=== PATIENT | female | born 1950 | race Caucasian/White ===

== ENCOUNTER 2021-04-02 04:53 | Inpatient (IN) | payer BC ==
[~2021-04-02] VITALS: Ht 162.6 cm; Wt 81.5 kg
--- NOTE | ~2021-04-02 | PROC ---
[facility] [address] [place] [address] PROCEDURE REPORT Name: MARC MASSEY Room: [address] IN M.R.#: [id number] Admission: 04/02/21 Attend Phys: Andi Engle Discharge: Date of : 48 Report #: [id number] THIS REPORT FOR: cc: Ximena Wills Dorothy L. RNP [facility],Medical Records Staff ~ For Gi report, please see the Provation report in Perceptive 7 content. By: 0644Medical Records Staff JILLIAN /MARGY
[2021-04-02 05:00] VITALS: BP 112/54
[2021-04-02 06:19] LABS: ABSOLUTE LYMPHOCYTES 0.7 thou/uL (0.8-5.3); ABSOLUTE MONOCYTES 0.1 thou/uL (0.0-1.2); ABSOLUTE NEUTROPHILS 4.8 thou/uL (1.6-8.1); BASOPHILS 0.2 %; HEMATOCRIT 40.2 % (37.0-47.0); HEMOGLOBIN 13.7 gm/dL (12.0-15.0); LYMPHOCYTES 12.5 %; MCH 31.7 pg (26.0-34.0); MCHC 34.1 g/dL (28.0-37.0); MCV 92.9 fL (80.0-100.0); MONOCYTES 2.4 %; NUCLEATED RBCS 0 /100WBC; PLATELET COUNT* 113 thou/uL (150-400); POLYS 84.9 %; RBC 4.32 mil/uL (4.20-5.00); RDW-CV 12.4 % (10.5-14.5); WBC 5.7 thou/uL (4.0-11.0)
[2021-04-02 06:22] LABS: CALCIUM 8.1 mg/dL (8.5-10.1); CREATININE 1.1 mg/dL (0.6-1.3); POTASSIUM 3.7 mmol/L (3.5-5.1)
[2021-04-02 06:32] LABS: ALBUMIN 2.7 g/dL (3.4-5.0); MAGNESIUM 1.8 mg/dL (1.8-2.4); TOTAL BILIRUBIN 0.3 mg/dL (<0.1-1.0); TOTAL PROTEIN 6.3 g/dL (6.4-8.2)
[2021-04-02 07:03] LABS: PCO2 35.9 mmHg (35.0-45.0); PO2 66.7 mmHg (75.0-100.0); pH 7.453 (7.340-7.450)
--- NOTE | 2021-04-02 09:49 | EKG ---
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[place] : 1950 Requested By: Jayashree Ramirez Order Number: [id number] MD: Mauricio Bai Measurements Intervals [place] Rate: 84 P: 17 PA: 175 QRS: -7 QRSD: 115 T: -4 QT: 364 QTc: 431 Interpretive Statements Sinus rhythm Ventricular premature complex Nonspecific intraventricular conduction delay Borderline low voltage, extremity leads No previous ECG available for comparison Electronically Signed On 04-02-2021 9:49:47 CDT by Mauricio Bai [email or web address] <ELECTRONICALLY SIGNED> By: Mauricio Bai MD, [facility] 04/02/21 0949 0507 0507 Mauricio Bai MD, [facility] /EPI
[2021-04-02 10:34] VITALS: BP 113/55
[2021-04-02 14:30] VITALS: BP 103/54
[2021-04-02] MEDS ORDERED: IVERMECTIN3 MG PO (14:50)
[2021-04-02] MEDS ORDERED: PROAIR HFA8.5 GM INH (14:51)
[2021-04-02] MEDS ORDERED: ZPAK PO (14:51)
[2021-04-02] MEDS ORDERED: BUDESONIDE EC3 MG PO (14:52)
--- NOTE | 2021-04-02 14:52 | NUR ---
MED LIST UPDATED BY PATIENT'S DAUGHTER, JAYMIE UP. JAYMIE REPORTS SHE DOES NOT KNOW THE CURRENT DOSE OF IVERMECTIN THAT THE PATIENT IS ON BUT SHE WILL FIND OUT WHAT IT IS AND CALL BACK WITH THAT INFORMATION. JAYMIE'S PHONE NUMBER IS [phone].
--- NOTE | 2021-04-02 18:15 | NUR ---
PT'S DAUGHTER BROUGHT PT'S IVERMECTIN PRESCRIPTION, PT STARTED TAKING IVERMECTIN 3MG YESTERDAY WITH ORDERS TO TAKE 10 TABS ON DAY 1 AND 3, REPEAT IN 1 WEEK. PT'S DAUGHTER WOULD LIKE FOR HER TO STAY ON IVERMECTIN REGIMEN.
[2021-04-02 18:48] VITALS: BP 116/66
[2021-04-02 22:00] VITALS: BP 136/68
[2021-04-03] VITALS (7 sets, daily range): BP systolic 108–130; BP diastolic 48–79
[2021-04-03 02:12] LABS: ABSOLUTE LYMPHOCYTES 0.8 thou/uL (0.8-5.3); ABSOLUTE MONOCYTES 0.1 thou/uL (0.0-1.2); ABSOLUTE NEUTROPHILS 4.8 thou/uL (1.6-8.1); BASOPHILS 0.1 %; HEMATOCRIT 39.4 % (37.0-47.0); HEMOGLOBIN 13.2 gm/dL (12.0-15.0); LYMPHOCYTES 13.1 %; MCH 31.2 pg (26.0-34.0); MCHC 33.6 g/dL (28.0-37.0); MONOCYTES 2.5 %; MPV 9.2 fl. (7.2-11.1); NUCLEATED RBCS 0 /100WBC; PLATELET COUNT* 110 thou/uL (150-400); POLYS 84.3 %; RBC 4.23 mil/uL (4.20-5.00); RDW-CV 12.5 % (10.5-14.5); WBC 5.7 thou/uL (4.0-11.0)
[2021-04-03 02:40] LABS: ALBUMIN 2.3 g/dL (3.4-5.0); CREATININE 0.7 mg/dL (0.6-1.3); TOTAL BILIRUBIN 0.3 mg/dL (<0.1-1.0); TOTAL PROTEIN 5.9 g/dL (6.4-8.2)
[2021-04-03 06:10] LABS: PCO2 37.5 mmHg (35.0-45.0); PO2 68.1 mmHg (75.0-100.0); pH 7.395 (7.340-7.450)
--- NOTE | 2021-04-03 15:16 | CON ---
[address] [address] CONSULTATION Name: BRYSONMARC D Room: [address] IN M.R.#: [id number] Admission: 04/02/21 Attend Phys: Andi Engle Discharge: Date of : 48 Report #: [id number] THIS REPORT FOR: cc: Ximena Wills Dorothy L. RNP Pervez, Adeel MD ~ DATE OF CONSULTATION: 04/02/2021 REQUESTING PHYSICIAN: Anthony Whitfield MD INDICATION FOR CONSULTATION: Acute hypoxemic respiratory failure secondary to COVID-19. HISTORY OF PRESENT ILLNESS: A 70-year-old female. She has no past medical history. She is unvaccinated for COVID-19. The patient over last several days has been having high-grade fever recorded up to 38.9 degrees Celsius. She also was evaluated previously as an outpatient and found to have an O2 saturation in the 80s and therefore, she came to this Emergency Room. She earlier by her primary care physician was administered Regeneron COVID-19 antibodies. The patient's condition is still continuing to deteriorate. She also was ordered a Z-Willi; however, she took only one dose. She has a cough. There is not much sputum. There is no chest pain. She does not have upper respiratory complaints at this time. There is no swelling of lower extremities. There is no calf pain. REVIEW OF SYSTEMS: Review of systems for 12 points is negative. PAST MEDICAL HISTORY: No past medical history. SOCIAL HISTORY: Lifetime nonsmoker. No known history of heavy alcohol use or illegal drug use. ALLERGIES: No known drug allergies. CURRENT MEDICATIONS: List in [facility] reviewed. HOME MEDICATIONS: Recently received Regeneron COVID-19 antibodies and was just started on Z-Willi. FAMILY HISTORY: There is no pertinent family history. PHYSICAL EXAMINATION: GENERAL: She is alert, awake and oriented. She, however, is very hypoxemic. She is requiring 100% FiO2 with 55 liters of flow on heated high-flow nasal cannula to maintain O2 saturation in the low [address] [address] CONSULTATION Name: MARC MASSEY Room: [address]#: [id number] Admission: 04/02/21 Attend Phys: Andi Engle Discharge: Date of : 48 Report #: [id number] VITAL SIGNS: The pulse of 67, blood pressure is 116/66. She was tachypneic with respiratory rate of 28, high-grade fever earlier today at 38.9 and 37.3 at the time of my evaluation. HEENT: Head is normocephalic and atraumatic. NECK: Does not show raised JVP. CHEST: Breath sounds are bilaterally equal. No added sounds. HEART: Regular. There is no murmur. ABDOMEN: Soft and nontender. EXTREMITIES: Lower extremities, no edema, no calf tenderness. SKIN: Dry and intact. NEUROLOGIC: Moves all extremities bilaterally equally and spontaneously with no focal deficit identified. LABORATORY DATA: The patient's chest x-ray and CTA chest films and report are reviewed. I reviewed both the films as well. Lab work also in [facility] reviewed. ASSESSMENT AND PLAN: 1. Acute hypoxemic respiratory failure secondary to COVID-19. Diagnostically, avoiding sleeping supine, prone is preferable to bed to chair if possible. If she fails to improve, we will have a low threshold of adding a BiPAP while asleep. Also, agree with nebulized bronchodilators as already ordered by the primary service. 2. COVID-19 with ARDS. The patient already has received Regeneron COVID-19 antibodies, which should be helpful. Considering this, the primary issue at this time appears to be cytokine storm as she is also significantly hypoxemic. I am starting with a higher dose of dexamethasone at 10 mg IV b.i.d. We will cut back if her respiratory status improves. Also, agree with treating her with remdesivir. I recommend giving her Actemra; however, Actemra currently is not available. As she has already received Regeneron COVID-19 antibodies, I will not give her convalescent plasma. 3. Pulmonary infiltrates, primarily these appear to be secondary to ARDS from COVID-19. However, considering that she is very hypoxemic, I initially started with fairly broad-spectrum antibiotics, doxycycline and cefepime. More cultures and serologies are ordered. 4. DVT prophylaxis, intermediate dose Lovenox. 5. Gastrointestinal prophylaxis, Protonix. 6. Clostridium difficile prophylaxis, Lactinex. Thanks for this consultation. <ELECTRONICALLY SIGNED> By: Noel Hernandez MD 04/03/21 1516 2100 [id number] Hernandez MD /nt
--- NOTE | 2021-04-03 15:26 | NUR ---
CM COMPLETED THE INITIAL ASSESSMENT WITH PT AND HIS , WHO WAS AT BEDSIDE. PT LIVES AT HOME WITH . PT HAS 4 STAIRS INSIDE FROM GARAGE AND 14 STAIRS INSIDE OF HOEM. PT HAS CANE, WALKER, AND CPAP. PT IS VERY ACTIVE, "CLIMBS LADDERS...CANT SIT AROUND AND WATCH TV." PT USED HH AFTER HIP SX IN 2002, 2008 AND KNEE SX IN 2010, PT DOESNT RECALL HH AGENCY. CM TO CONT TO FOLLOW.
--- NOTE | 2021-04-03 16:19 | NUR ---
CM COMPLETED INITIAL ASSESSMENT WITH PT DTR, JAYMIE, D/T COVID ISOLATION PRECAUTIONS. PT LIVES IN HOME WITH SPOUSE. PT IS ACTIVE, INDEPENDENT WITH ADLS AND DRIVES A VEHICLE. PT HOME IS ON ONE LEVEL. STAIRS TO BASEMENT. PT HAS NO DMES. JAYMIE STATED PT HAS NO HX WITH HH OR SNF.
--- NOTE | 2021-04-03 18:21 | NUR ---
PATIENT ARRIVED FROM ER THIS AM. PATIENT SETTLED TO ROOM, HISTORY, ASSESSMENT AND VITYALS COMPLETED AND DOCUMENTED. PATIENT IS RESTING IN BED. PATIENT IS UP WITH STANDBY ASSIST TO COMMODE. PATIENT CAME FROM ER ON BIPAP, O2 SATS IN LOW 90'S. PATIENT SWITCHED TO [facility] FOR LUNCH/DINNER, PATIENT STARTED TO SAT IN UPPER 80'S. BIPAP IS CURRENTLY ON. PATIENT HAS POOR APPETITE, DIET IS CLEAR LIQUIDS, CLEAR ENSURE GIVEN. PATIENT DENIES ANY NEEDS AT THIS TIME. CALL LIGHT WITHIN REACH.
[2021-04-04 00:06] VITALS: BP 108/64
[2021-04-04 04:00] VITALS: BP 90/61
[2021-04-04 07:55] VITALS: BP 98/69
[2021-04-04 09:32] LABS: HEMATOCRIT 39.9 % (37.0-47.0); HEMOGLOBIN 13.8 gm/dL (12.0-15.0); MCH 32.1 pg (26.0-34.0); MCHC 34.7 g/dL (28.0-37.0); MCV 92.4 fL (80.0-100.0); NUCLEATED RBCS 0 /100WBC; PLATELET COUNT* 160 thou/uL (150-400); RBC 4.31 mil/uL (4.20-5.00); RDW-CV 12.6 % (10.5-14.5); WBC 9.4 thou/uL (4.0-11.0)
[2021-04-04 09:43] LABS: ALBUMIN 2.5 g/dL (3.4-5.0); CALCIUM 8.2 mg/dL (8.5-10.1); CREATININE 0.9 mg/dL (0.6-1.3); MAGNESIUM 2.2 mg/dL (1.8-2.4); POTASSIUM 3.9 mmol/L (3.5-5.1); TOTAL BILIRUBIN 0.4 mg/dL (<0.1-1.0)
[2021-04-04 10:23] LABS: ABSOLUTE LYMPHOCYTES 0.5 thou/uL (0.8-5.3); ABSOLUTE MONOCYTES 0.2 thou/uL (0.0-1.2); ABSOLUTE NEUTROPHILS 8.7 thou/uL (1.6-8.1); PLATELET ESTIMATE ADEQUATE
[2021-04-04 12:18] VITALS: BP 94/58
[2021-04-04 16:00] VITALS: BP 83/44
--- NOTE | 2021-04-04 16:23 | NUR ---
Cm spoke with Pt's dtr, per dtr, Pt does have a DPOA at home, dtr to go to parent's home and text CM a copy of the DPOA. Pt on bipap 100%. Updated House Sup that Pt may need to complete one if family unable to locate
--- NOTE | 2021-04-04 18:24 | NUR ---
PATIENT RESTING IN BED. PATIENT ENCOURAGED TO LIE ON SIDE OR STOMACH. PATIENT HAD BEEN ON HEATED HIGH FLOW THROUGHOUT DAY, CURRENTLY ON BIPAP DUE TO O2 SATS CONSISTANTLY FALLING INTO 80'S. DR RANGEL AWARE. PATIENT IS UP STANDBY TO BSC. PATIENT ADVANCED TO REGULAR DIET AND TOLERATING WELL. PATIENT HAD COMPLAINTS OF SORE THROAT THIS AM, TYLENOL GIVEN. PATIENT DENIES ANY NEEDS AT THIS TIME. CALL LIGHT WITHIN REACH.
[2021-04-04 19:45] VITALS: BP 97/65
[2021-04-05] VITALS (7 sets, daily range): BP systolic 96–116; BP diastolic 52–74
[2021-04-05 04:31] LABS: ABSOLUTE LYMPHOCYTES 0.8 thou/uL (0.8-5.3); ABSOLUTE MONOCYTES 0.6 thou/uL (0.0-1.2); ABSOLUTE NEUTROPHILS 7.4 thou/uL (1.6-8.1); BASOPHILS 0.2 %; HEMATOCRIT 40.1 % (37.0-47.0); HEMOGLOBIN 13.7 gm/dL (12.0-15.0); LYMPHOCYTES 9.5 %; MCH 31.3 pg (26.0-34.0); MCV 92.1 fL (80.0-100.0); MONOCYTES 6.8 %; MPV 8.9 fl. (7.2-11.1); NUCLEATED RBCS 0 /100WBC; PLATELET COUNT* 165 thou/uL (150-400); POLYS 83.5 %; RBC 4.36 mil/uL (4.20-5.00); RDW-CV 12.6 % (10.5-14.5); WBC 8.8 thou/uL (4.0-11.0)
--- NOTE | 2021-04-05 04:35 | NUR ---
PT A&O X 4. SAT 90-98% ON BIPAP. MEDS GIVEN ORDERED. NO C/O DIARRHEA. UP TO BSC WITH SBA. DENIED PAIN. PT SLEPT ON AND OFF. CALL LIGHT WITHIN REACH. WILL CONTINUE TO MONITOR.
[2021-04-05 05:04] LABS: ALBUMIN 2.3 g/dL (3.4-5.0); CREATININE 0.8 mg/dL (0.6-1.3); MAGNESIUM 2.4 mg/dL (1.8-2.4); TOTAL BILIRUBIN 0.4 mg/dL (<0.1-1.0); TOTAL PROTEIN 5.6 g/dL (6.4-8.2)
--- NOTE | 2021-04-05 08:57 | NUR ---
Pt was placed on AVAPS VT 440/R12/FIO 90% PT DIDN'T TOLERATE. PT DESATED INTO THE LOW 80%. PLACED PT BACK ON ST 1610 90%. PT NOW IS BACK IN THE 93%
--- NOTE | 2021-04-05 18:55 | NUR ---
PATIENT HAS REMAINED A&OX4, PLEASANT AND COOPERATIVE WITH CARES THIS SHIFT. PATIENT OFF BIPAP FOR MEALS HOWEVER DOES DESAT AT THAT TIME WITH [facility] ON. MEDICATIONS ADMINISTERED ORDERED. NEW IV PLACED IN RIGHT AC BY ER NURSE. SPOKE WITH PATIENT'S DAUGHTER X2 THIS SHIFT TO GIVE UPDATES. CALL LIGHT AND FREQUENTLY USED ITEMS WITHIN REACH.
[2021-04-06] VITALS (7 sets, daily range): BP systolic 82–119; BP diastolic 49–76
[2021-04-06 05:50] LABS: HEMATOCRIT 40.5 % (37.0-47.0); HEMOGLOBIN 13.6 gm/dL (12.0-15.0); MCH 31.2 pg (26.0-34.0); MCHC 33.6 g/dL (28.0-37.0); MPV 9.2 fl. (7.2-11.1); RBC 4.36 mil/uL (4.20-5.00); RDW-CV 12.4 % (10.5-14.5)
--- NOTE | 2021-04-06 05:50 | NUR ---
Alert and oriented x 4. Vitals are stable. She does need to be on the bipap her oxygen does drop into the 80's when she takes it off. She is up with stand by assist to the bedside commode. Daughter Odette called last evening for an update. Monitor hasn't alarmed. She has slept well.
[2021-04-06 06:08] LABS: ALBUMIN 2.4 g/dL (3.4-5.0); CALCIUM 7.9 mg/dL (8.5-10.1); CREATININE 0.8 mg/dL (0.6-1.3); MAGNESIUM 2.5 mg/dL (1.8-2.4); POTASSIUM 4.3 mmol/L (3.5-5.1); TOTAL BILIRUBIN 0.6 mg/dL (<0.1-1.0); TOTAL PROTEIN 5.6 g/dL (6.4-8.2)
[2021-04-06 11:35] LABS: BE 0.8 mmol/L (-2 to +3); PCO2 42.7 mmHg (35.0-45.0); PO2 69.8 mmHg (75.0-100.0); pH 7.399 (7.340-7.450)
--- NOTE | 2021-04-06 11:35 | CON ---
[address] [address] CONSULTATION Name: BRYSONMARC Andi Room: [address] IN .R.#: [id number] Admission: 04/02/21 Attend Phys: Andi Engle Discharge: Date of : 48 Report #: [id number] THIS REPORT FOR: cc: Ximena Wills Dorothy L. RNP Liston, Michael J. MD [facility] ~ DATE OF CONSULTATION: 04/05/2021 CARDIOLOGY CONSULTATION INDICATION: Atrial fibrillation with rapid ventricular response rate. HISTORY OF PRESENT ILLNESS: The patient is a 70-year-old white female who was admitted to the hospital with COVID-19 pneumonia. In this setting, she developed atrial fibrillation with a rapid ventricular response rate. She denies any prior cardiac history. The patient has been in the hospital almost a week now. The patient has received remdesivir, Actemra, dexamethasone, bronchodilator therapy and proning in an effort to treat her COVID-19 pneumonia. PAST MEDICAL HISTORY: None. HOME MEDICATIONS: Ivermectin 3 mg daily, Z-LAKE 1 pack, albuterol inhaler 2 puffs every 4-6 hours p.r.n., budesonide 3 mg p.o. p.r.n. ALLERGIES: None documented. FAMILY HISTORY: Noncontributory. SOCIAL HISTORY: The patient is . She does not smoke. She does not drink alcohol. PHYSICAL EXAMINATION: VITAL SIGNS: Blood pressure 111/66, pulse is in the one-teens and irregular. GENERAL: This is a pleasant lady who does not appear to be in distress. High flow nasal cannula in place. HEENT: Extraocular muscles intact. Mucous membranes are moist. NECK: Shows no jugular venous distention. CHEST: Reveals diminished breath sounds throughout. CARDIAC: Reveals an irregularly irregular rhythm that is slightly tachycardic. I do not appreciate obvious gallop or murmur. ABDOMEN: Soft and nontender. Bowel sounds present. EXTREMITIES: Shows no edema. LABORATORY DATA: Reviewed. Sodium 144, potassium 4.0, chloride 110, bicarbonate 29, BUN 21, creatinine 0.8, serum glucose 138. [place] [address] CONSULTATION Name: MARC MASSEY Room: [address] IN [facility]#: [id number] Admission: 04/02/21 Attend Phys: Andi Engle Discharge: Date of : 48 Report #: [id number] limits. High sensitivity troponin 18. White blood cell count 8.8, hemoglobin 13.7, platelet count 165,000. Chest x-ray: Poor quality improving diffuse infiltrates. IMPRESSION AND RECOMMENDATIONS: 1. New onset atrial fibrillation with rapid ventricular response rate. We will give flecainide in an attempt to cardiovert to sinus rhythm. Echocardiogram will be ordered. Rates fairly well controlled presently. We will start low dose Lopressor along with flecainide. 2. COVID-19 pneumonia per hospitalist and pulmonology. <ELECTRONICALLY SIGNED> By: Víctor Daley MD, FACC 04/06/21 1135 1231 1942Michaeluisito Daley MD, FACC /nt
[2021-04-07] VITALS (7 sets, daily range): BP systolic 103–125; BP diastolic 65–80
[2021-04-07 04:25] LABS: HEMATOCRIT 38.4 % (37.0-47.0); MCHC 33.8 g/dL (28.0-37.0); MCV 91.8 fL (80.0-100.0); MPV 8.7 fl. (7.2-11.1); RBC 4.18 mil/uL (4.20-5.00); WBC 8.1 thou/uL (4.0-11.0)
[2021-04-07 05:17] LABS: ALBUMIN 2.7 g/dL (3.4-5.0); CREATININE 0.7 mg/dL (0.6-1.3); MAGNESIUM 2.3 mg/dL (1.8-2.4); POTASSIUM 3.9 mmol/L (3.5-5.1); TOTAL BILIRUBIN 0.6 mg/dL (<0.1-1.0); TOTAL PROTEIN 5.5 g/dL (6.4-8.2)
--- NOTE | 2021-04-07 06:43 | NUR ---
She has been drowsy this shift. She is on bipap F1O2 70%. She is afib on the monitor. She does desat immediately if she is off the bipap. She did appear to be resting comfortable after xanax. sat has been in the 90's. I did speak with daughter Odette last evening and I told her that the patient was resting and vitals were stable but that she requires the bipap at all times right now. Daughter said that she would like to talk to Dr Finch when she makes rounds today or whoever might be rounding for Dr Finch. Edgardo Pino stated that she would like them to increase the jenn C dose and restart her ivermectin. I did send a non-urgent message through You Call MD. She does struggle when up to the bedside commode,she does require assist. Will continue to monitor.
[2021-04-07 09:53] LABS: BE 5.3 mmol/L (-2 to +3); pH 7.496 (7.340-7.450)
--- NOTE | 2021-04-07 13:12 | NUR ---
The patient is alert. Afib on the monitor. She has been on the Bipap throughtout the day. Denies SOB or CP. Call light within reach.
[2021-04-08] VITALS (27 sets, daily range): BP systolic 97–131; BP diastolic 60–89
--- NOTE | 2021-04-08 | NUR ---
Patient was confused and sat kept dropping onthe bipap. She was unable to tolerate having the bipap off for any amount of time. RT was in the room and made some changes to her bipap. She coughed up some brown colored stringy like phelm. I did give her some IV nausea med and IV decadron and started her IV jenn C infusion. She continued to desat and it was observed that there was no way she could tolerate anything orally. She was very restless, her face was chary and from struggling and the bipap mask irritating her skin. She ended up pulling out her IV after I had just talked with Dr Finch and recieved orders for IV medications. We cleaned her up and changed her linen. Batista inserted to DD with no difficulty. Report given to Jessie HAMMER and she took over care at 2300. I did speak with daughter Odette and explained that she is having more difficulty with oxygenation and that a new IV medication was started. Odette expressed understanding.
--- NOTE | 2021-04-08 05:03 | NUR ---
PT WAS STARTED ON A PRECEDEX GTT AT 0000. THIS RN RESUMED CARE OF THIS PT AT THAT TIME. PT WAS RESTLESS, ANXIOUS AND ATTEMPTING TO TAKE BIPAP MASK OFF. PRECEDEX WAS INITIATED AT 0.2 MCG/KG/HR AND WAS TITRATED TO KEEP PT SLIGHTLY SEDATED. MAX DOSE GIVEN WAS 1.0 MCG/KG/HR WHICH DID LIGHTLY SEDATE PT. PT DID RESPOND TO PAINFUL STIMULI (NAIL BEDS PINCHED). BP SUPPORTED THE DOSES OF TITRATED PRECEDEX (92-128/60-80), AFEBRILE. AFIB PER MONITOR. SATS 95-100% ON BIPAP WITH 90% FIO2. ROBERTS PATENT WITH DARK YELLOW, ADEQUATE OUTPUT. ONE LARGE BM THIS SHIFT. PT'S DAUGHTER CALLED FOR UPDATE OF PT'S STATUS. MOST QUESTIONS WERE ANSWERED AND PT SEEMED PLEASED WITH BEING EXPLAINED PT'S POC. PT AGREED TO GETTING SOME SLEEP AND TO STOP WORRYING. ASSURANCE WQAS GIVEN THAT IF THERE WERE ANY SIGNIFICANT CHANGES THAT SHE WOULD BE NOTIFIED BARB. TWO PERIPHERAL IV'S WERE STARTED ON THE RIGHT LOWER FORE ARM. CURRENTLY, POOR PROGRESS TOWARDS GOALS, WILL CONTINUE TO MONITOR.
[2021-04-08 11:39] LABS: BE 4.9 mmol/L (-2 to +3); PCO2 40.1 mmHg (35.0-45.0); PO2 78.5 mmHg (75.0-100.0); pH 7.475 (7.340-7.450)
[2021-04-08 13:03] LABS: ABSOLUTE LYMPHOCYTES 0.3 thou/uL (0.8-5.3); ABSOLUTE MONOCYTES 0.4 thou/uL (0.0-1.2); BASOPHILS 0.2 %; HEMATOCRIT 42.4 % (37.0-47.0); HEMOGLOBIN 14.5 gm/dL (12.0-15.0); LYMPHOCYTES 4.5 %; MCH 31.5 pg (26.0-34.0); MCHC 34.2 g/dL (28.0-37.0); MCV 92.1 fL (80.0-100.0); MONOCYTES 5.7 %; MPV 9.5 fl. (7.2-11.1); NUCLEATED RBCS 0 /100WBC; PLATELET COUNT* 134 thou/uL (150-400); POLYS 89.6 %; RDW-CV 12.3 % (10.5-14.5); WBC 7.8 thou/uL (4.0-11.0)
[2021-04-08 13:18] LABS: ALBUMIN 2.8 g/dL (3.4-5.0); CALCIUM 7.8 mg/dL (8.5-10.1); CREATININE 0.8 mg/dL (0.6-1.3); MAGNESIUM 2.4 mg/dL (1.8-2.4); POTASSIUM 4.1 mmol/L (3.5-5.1); TOTAL BILIRUBIN 0.7 mg/dL (<0.1-1.0); TOTAL PROTEIN 5.7 g/dL (6.4-8.2)
--- NOTE | 2021-04-08 13:50 | NUR ---
ICU status. Copy of DPOA on chart. On bipap 10L 90%fio2. On precedex. On day 22 since dx, can come out of iso
--- NOTE | 2021-04-08 17:41 | EKG ---
[place] [address] ELECTROCARDIOGRAM REPORT Name: MARC MASSEY Room: [address] IN .R.#: [id number] Admission: 04/02/21 Attend Phys: Anthony Whitfield Discharge: Date of : 48 Date of Service: 04/05/21 1017 Report #: [id number] THIS REPORT FOR: //name// 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 <ELECTRONICALLY SIGNED> By: Víctor Daley MD, [facility] 04/08/21 1741 1017 1017 Víctor Daley MD, [facility] /EPI
[2021-04-09] VITALS (35 sets, daily range): BP systolic 76–134; BP diastolic 46–94
[2021-04-09 03:35] LABS: HEMATOCRIT 42.5 % (37.0-47.0); HEMOGLOBIN 14.5 gm/dL (12.0-15.0); MCH 31.1 pg (26.0-34.0); MCHC 34.1 g/dL (28.0-37.0); MPV 9.4 fl. (7.2-11.1); NUCLEATED RBCS 0 /100WBC; PLATELET COUNT* 113 thou/uL (150-400); RBC 4.67 mil/uL (4.20-5.00); RDW-CV 12.2 % (10.5-14.5); WBC 7.7 thou/uL (4.0-11.0)
[2021-04-09 04:05] LABS: ALBUMIN 2.5 g/dL (3.4-5.0); CALCIUM 7.7 mg/dL (8.5-10.1); CREATININE 0.8 mg/dL (0.6-1.3); MAGNESIUM 2.3 mg/dL (1.8-2.4); POTASSIUM 4.1 mmol/L (3.5-5.1); TOTAL BILIRUBIN 0.5 mg/dL (<0.1-1.0); TOTAL PROTEIN 5.2 g/dL (6.4-8.2)
[2021-04-09 05:47] LABS: ABSOLUTE LYMPHOCYTES 0.2 thou/uL (0.8-5.3); ABSOLUTE MONOCYTES 0.3 thou/uL (0.0-1.2); ABSOLUTE NEUTROPHILS 7.2 thou/uL (1.6-8.1); ANISOCYTOSIS 1+; PLATELET ESTIMATE DECREASED; POIKILOCYTOSIS 1+
--- NOTE | 2021-04-09 11:38 | NUR ---
Nutrition: Pt admitted with COVID PNA. H/o afib. Seen for LOS. Spoke with RN. Pt is on 2gmNa diet. She ate some applesauce this morning, hopeful for good po intake throughout the day. She is drowsy right now. Bipap at HS. Heated hi-lucía. +BM yday. Wt: 189#. Meds: insulin, zinc, vit d, B1, l. acidophilus, metoprolol. Labs: BG 167, alb 2.5, prealb 19.6. Condiser low nutrition risk at this time. Will f/u per protocol.
--- NOTE | 2021-04-09 12:45 | NUR ---
Case and plan of care reviewed with MD each weekday during patient's length of stay. Continue plan of care per MD orders for current dx. 9/7 pm Transferred to ICU for IV Precedex need, Bibap 80 Fi02 CM will continue to follow for discharge planning needs.
--- NOTE | 2021-04-09 13:28 | 2DMMODE ---
[address] [address] 2 D/M-MODE ECHOCARDIOGRAM Name: MARC MASSEY Room: [address] IN [facility]#: [id number] Admission: 04/02/21 Attend Phys: Anthony Whitfield Discharge: Date of : 48 Date of Service: 04/09/21 1328 Report #: [id number] THIS REPORT FOR: cc: Ximena Wills Dorothy L. RNP Holkins, John M. MD [facility] ~ APPROVED REPORT Study performed: 04/09/2021 11:49:43 EXAM: Comprehensive 2D, Doppler, and color-flow Echocardiogram Patient Location: In-Patient Room #: 106 Status: routine BSA: 1.91 HR: 115 bpm BP: 89/64 mmHg Rhythm: Atrial Fibrillation Other Information Study Quality: Good Indications Atrial Fibrillation 2D Dimensions IVSd: 11.26 (7-11mm) LVOT Diam: 20.11 (18-24mm) LVDd: 41.60 mm PWd: 9.57 (7-11mm) Ascending Ao: 32.27 (22-36mm) LVDs: 27.63 (25-40mm) Aortic Root: 34.48 mm Volumes Left Atrial Volume (Systole) LA ESV Index: 27.70 mL/m2 Aortic Valve AoV Peak Eliel.: 1.12 m/s AO Peak Gr.: 5.06 mmHg LVOT Max P.47 mmHg AO Mean Gr.: 2.93 mmHg LVOT Mean P.51 mmHg LVOT Max V: 0.93 m/s AO V2 VTI: 19.65 cm LVOT Mean V: 0.56 m/s TOMMY (VTI): 2.46 cm2 LVOT V1 VTI: 15.24 [place] [address] 2 D/M-MODE ECHOCARDIOGRAM Name: MARC MASSEY Room: [address] IN [facility]#: [id number] Admission: 04/02/21 Attend Phys: Anthony Whitfield Discharge: Date of : 48 Date of Service: 04/09/21 1328 Report #: [id number] TDI Medial E' Eliel.: 0.10 m/s Pulmonary Valve PV Peak Eliel.: 0.76 m/s PV Peak Gr.: 2.33 mmHg Left Ventricle The left ventricle is normal size. There is normal LV segmental wall motion. There is normal left ventricular wall thickness. Left ventricular systolic function is normal. The left ventricular ejection fraction is within the normal range. LVEF is 65%. This study is not technically sufficient to allow evaluation of the LV diastolic function due to atrial fibrillation. Right Ventricle The right ventricle is normal size. The right ventricular systolic function is normal. Atria Left atrium is mildly dilated. The right atrium size is normal. Aortic Valve The aortic valve is normal in structure. No aortic regurgitation is present. There is no aortic valvular stenosis. Mitral Valve Mild mitral annular calcification. Mild mitral regurgitation. No evidence of mitral valve stenosis. Tricuspid Valve The tricuspid valve is normal in structure. Trace tricuspid regurgitation. Unable to assess PA pressure. Pulmonic Valve The pulmonary valve is normal in structure. Mild pulmonic regurgitation. Great Vessels The aortic root is normal in size. IVC is normal in size and collapses >50% with inspiration. Pericardium There is no pericardial effusion. <Conclusion> [place] [address] 2 D/M-MODE ECHOCARDIOGRAM Name: BRYSONMARC Andi Room: [address] IN .R.#: [id number] Admission: 04/02/21 Attend Phys: Anthony Whitfield Discharge: Date of : 48 Date of Service: 04/09/21 1328 Report #: [id number] The left ventricle is normal size. There is normal left ventricular wall thickness. Left ventricular systolic function is normal. The left ventricular ejection fraction is within the normal range. LVEF is 65%. This study is not technically sufficient to allow evaluation of the LV diastolic function due to atrial fibrillation. The right ventricle is normal size. Left atrium is mildly dilated. The right atrium size is normal. The aortic valve is normal in structure. Mild mitral annular calcification. Mild mitral regurgitation. The tricuspid valve is normal in structure. IVC is normal in size and collapses >50% with inspiration. There is no pericardial effusion. There is normal LV segmental wall motion. <ELECTRONICALLY SIGNED> By: Colten Michelle MD, [facility] 04/09/21 1328 1328 1328 Colten Michelle MD, FACC /INF
[2021-04-09 18:34] LABS: CALCIUM 8.4 mg/dL (8.5-10.1); MAGNESIUM 2.6 mg/dL (1.8-2.4); POTASSIUM 4.2 mmol/L (3.5-5.1)
--- NOTE | 2021-04-09 20:30 | NUR ---
PT VERY DROWSY THIS AM, JUST VERBALISING "HELP, HELP". TOLERATED HEATED HIGH FLOW NC, FIO2 100% FOR FOUR HOURS THIS AM. ABLE TO EAT SOME APPLE SAUCE AND HAVE PILLS CRUSED. PAST NOON PT STARTED TAKING OFF THE CANNULA AND STATED SHE JUST WANTED TO AND GET OUT OF HERE, DESATTING AT [facility]. PUT BACK ON BIPAP AND PRECEDEX INCREASED TO MAX TO KEEP HER CALM AND NOT PULL OFF MASK. FIO2 DECREASED TO 80%. DAUGHTER UPDATED.
[2021-04-10] VITALS (13 sets, daily range): BP systolic 77–131; BP diastolic 48–86
[2021-04-10 05:03] LABS: ABSOLUTE LYMPHOCYTES 0.6 thou/uL (0.8-5.3); ABSOLUTE MONOCYTES 0.7 thou/uL (0.0-1.2); ABSOLUTE NEUTROPHILS 8.9 thou/uL (1.6-8.1); BASOPHILS 0.2 %; HEMATOCRIT 42.1 % (37.0-47.0); HEMOGLOBIN 14.1 gm/dL (12.0-15.0); LYMPHOCYTES 6.1 %; MCH 31.1 pg (26.0-34.0); MCHC 33.6 g/dL (28.0-37.0); MCV 92.5 fL (80.0-100.0); MPV 9.3 fl. (7.2-11.1); NUCLEATED RBCS 0 /100WBC; PLATELET COUNT* 138 thou/uL (150-400); POLYS 86.7 %; RBC 4.55 mil/uL (4.20-5.00); RDW-CV 12.1 % (10.5-14.5); WBC 10.2 thou/uL (4.0-11.0)
[2021-04-10 05:33] LABS: ALBUMIN 3.1 g/dL (3.4-5.0); CALCIUM 8.2 mg/dL (8.5-10.1); CREATININE 0.9 mg/dL (0.6-1.3); MAGNESIUM 2.4 mg/dL (1.8-2.4); POTASSIUM 3.9 mmol/L (3.5-5.1); TOTAL BILIRUBIN 0.9 mg/dL (<0.1-1.0); TOTAL PROTEIN 5.5 g/dL (6.4-8.2)
[2021-04-10 14:22] LABS: PCO2 42.7 mmHg (35.0-45.0); PO2 76.8 mmHg (75.0-100.0)
[2021-04-10 17:08] LABS: CALCIUM 7.9 mg/dL (8.5-10.1); MAGNESIUM 2.3 mg/dL (1.8-2.4); POTASSIUM 4.1 mmol/L (3.5-5.1)
[2021-04-10 17:19] LABS: URINE BILIRUBIN NEGATIVE (Negative); URINE BLOOD TRACE (Negative); URINE CLARITY CLEAR; URINE COLOR YELLOW; URINE GLUCOSE-RANDOM NEGATIVE (Negative); URINE KETONES NEGATIVE (Negative); URINE LEUKOCYTES-REFLEX NEGATIVE (Negative); URINE NITRITE-REFLEX NEGATIVE (Negative); URINE PROTEIN TRACE (Negative); URINE SPECIFIC GRAVITY 1.025 (1.005-1.030); URINE UROBILINOGEN 0.2 E.U./dl (0.2-1.0)
[2021-04-11] VITALS (48 sets, daily range): BP systolic 60–180; BP diastolic 47–93
[2021-04-11 05:58] LABS: ABSOLUTE LYMPHOCYTES 0.3 thou/uL (0.8-5.3); ABSOLUTE MONOCYTES 0.3 thou/uL (0.0-1.2); ABSOLUTE NEUTROPHILS 8.5 thou/uL (1.6-8.1); BASOPHILS 0.1 %; HEMATOCRIT 38.4 % (37.0-47.0); HEMOGLOBIN 13.1 gm/dL (12.0-15.0); LYMPHOCYTES 3.7 %; MCH 31.9 pg (26.0-34.0); MCHC 34.3 g/dL (28.0-37.0); MONOCYTES 3.1 %; MPV 10.1 fl. (7.2-11.1); NUCLEATED RBCS 0 /100WBC; PLATELET COUNT* 110 thou/uL (150-400); POLYS 93.1 %; RBC 4.12 mil/uL (4.20-5.00); RDW-CV 12.1 % (10.5-14.5); WBC 9.1 thou/uL (4.0-11.0)
[2021-04-11 06:26] LABS: ALBUMIN 2.6 g/dL (3.4-5.0); CALCIUM 7.4 mg/dL (8.5-10.1); CREATININE 0.8 mg/dL (0.6-1.3); MAGNESIUM 2.1 mg/dL (1.8-2.4); POTASSIUM 4.2 mmol/L (3.5-5.1); TOTAL BILIRUBIN 0.8 mg/dL (<0.1-1.0)
[2021-04-11 09:01] LABS: BE -2.3 mmol/L (-2 to +3); PCO2 34.6 mmHg (35.0-45.0); PO2 115.4 mmHg (75.0-100.0); pH 7.413 (7.340-7.450)
--- NOTE | 2021-04-11 09:45 | NUR ---
ICU ROUNDS: PT IS ON VENT AT 80%. IV STERIODS & ABX. BRONCHODILATORS. DIURETIC. ANTICOAGULATION. CARDIO FOLLOWING.
[2021-04-12] VITALS (47 sets, daily range): BP systolic 78–139; BP diastolic 47–77
[2021-04-12 04:04] LABS: HEMATOCRIT 37.6 % (37.0-47.0); HEMOGLOBIN 12.9 gm/dL (12.0-15.0); MCH 31.4 pg (26.0-34.0); MCHC 34.2 g/dL (28.0-37.0); MCV 91.7 fL (80.0-100.0); MPV 10.5 fl. (7.2-11.1); NUCLEATED RBCS 0 /100WBC; PLATELET COUNT* 115 thou/uL (150-400); RBC 4.11 mil/uL (4.20-5.00); WBC 12.5 thou/uL (4.0-11.0)
[2021-04-12 04:09] LABS: ALBUMIN 2.3 g/dL (3.4-5.0); CALCIUM 7.2 mg/dL (8.5-10.1); CREATININE 0.7 mg/dL (0.6-1.3); MAGNESIUM 1.8 mg/dL (1.8-2.4); POTASSIUM 4.3 mmol/L (3.5-5.1); TOTAL BILIRUBIN 0.9 mg/dL (<0.1-1.0); TOTAL PROTEIN 4.6 g/dL (6.4-8.2)
[2021-04-12 04:21] LABS: PREALBUMIN 19.3 mg/dL (18.0-35.7)
[2021-04-12 08:20] LABS: BE -2.5 mmol/L (-2 to +3); PCO2 34.9 mmHg (35.0-45.0); pH 7.408 (7.340-7.450)
[2021-04-12 08:23] LABS: PO2 140.4 mmHg (75.0-100.0)
[2021-04-12 09:01] LABS: ABSOLUTE LYMPHOCYTES 0.6 thou/uL (0.8-5.3); ABSOLUTE MONOCYTES 0.4 thou/uL (0.0-1.2); ABSOLUTE NEUTROPHILS 11.5 thou/uL (1.6-8.1); PLATELET ESTIMATE DECREASED
[2021-04-13] VITALS (47 sets, daily range): BP systolic 62–152; BP diastolic 40–87
[2021-04-13 07:40] LABS: HEMATOCRIT 34.8 % (37.0-47.0); HEMOGLOBIN 11.9 gm/dL (12.0-15.0); MCH 31.7 pg (26.0-34.0); MCHC 34.3 g/dL (28.0-37.0); MCV 92.4 fL (80.0-100.0); MPV 11.5 fl. (7.2-11.1); RBC 3.77 mil/uL (4.20-5.00); RDW-CV 12.1 % (10.5-14.5); WBC 13.8 thou/uL (4.0-11.0)
[2021-04-13 07:43] LABS: CALCIUM 7.4 mg/dL (8.5-10.1); CREATININE 0.9 mg/dL (0.6-1.3); POTASSIUM 4.8 mmol/L (3.5-5.1)
[2021-04-13 15:27] LABS: HEMATOCRIT 35.3 % (37.0-47.0); HEMOGLOBIN 12.3 gm/dL (12.0-15.0)
[2021-04-14] VITALS (68 sets, daily range): BP systolic 73–167; BP diastolic 24–84
--- NOTE | 2021-04-14 09:00 | NUR ---
Case and plan of care reviewed with MD each weekday during patient's length of stay. Continue plan of care per MD orders for current dx. Remains on vent 60% and IV sedation. CM will continue to follow for discharge planning needs
[2021-04-14 11:05] LABS: BE 3.9 mmol/L (-2 to +3); PCO2 42.7 mmHg (35.0-45.0); PO2 69.9 mmHg (75.0-100.0); pH 7.441 (7.340-7.450)
[2021-04-14 11:46] LABS: ABSOLUTE EOSINOPHILS 0.2 thou/uL (0.0-0.7); ABSOLUTE LYMPHOCYTES 0.5 thou/uL (0.8-5.3); ABSOLUTE MONOCYTES 0.9 thou/uL (0.0-1.2); BASOPHILS 0.1 %; EOSINOPHILS 0.8 %; HEMATOCRIT 30.8 % (37.0-47.0); HEMOGLOBIN 10.6 gm/dL (12.0-15.0); LYMPHOCYTES 2.4 %; MCH 31.8 pg (26.0-34.0); MCHC 34.4 g/dL (28.0-37.0); MCV 92.3 fL (80.0-100.0); MONOCYTES 4.5 %; MPV 9.9 fl. (7.2-11.1); NUCLEATED RBCS 0 /100WBC; POLYS 92.2 %; RBC 3.34 mil/uL (4.20-5.00); RDW-CV 11.8 % (10.5-14.5); WBC 19.6 thou/uL (4.0-11.0)
[2021-04-14 11:49] LABS: PLATELET COUNT* 47 thou/uL (150-400)
[2021-04-14 11:59] LABS: ALBUMIN 2.6 g/dL (3.4-5.0); CALCIUM 7.4 mg/dL (8.5-10.1); CREATININE 0.7 mg/dL (0.6-1.3); POTASSIUM 4.8 mmol/L (3.5-5.1); TOTAL BILIRUBIN 0.8 mg/dL (<0.1-1.0); TOTAL PROTEIN 4.5 g/dL (6.4-8.2)
[2021-04-14 15:20] LABS: ABSOLUTE LYMPHOCYTES 0.6 thou/uL (0.8-5.3); ABSOLUTE NEUTROPHILS 20.7 thou/uL (1.6-8.1); BASOPHILS 0.1 %; EOSINOPHILS 0.1 %; HEMOGLOBIN 10.3 gm/dL (12.0-15.0); LYMPHOCYTES 2.6 %; MCH 31.9 pg (26.0-34.0); MCHC 34.4 g/dL (28.0-37.0); MCV 92.9 fL (80.0-100.0); MONOCYTES 4.7 %; MPV 10.7 fl. (7.2-11.1); NUCLEATED RBCS 0 /100WBC; POLYS 92.5 %; RBC 3.23 mil/uL (4.20-5.00); RDW-CV 12.2 % (10.5-14.5); WBC 22.3 thou/uL (4.0-11.0)
[2021-04-14 15:22] LABS: PLATELET COUNT* 123 thou/uL (150-400)
[2021-04-14 15:33] LABS: CALCIUM 7.5 mg/dL (8.5-10.1); CREATININE 0.7 mg/dL (0.6-1.3); MAGNESIUM 2.3 mg/dL (1.8-2.4); POTASSIUM 4.9 mmol/L (3.5-5.1)
--- NOTE | 2021-04-14 17:49 | CON ---
[facility] [address] [place] [address] CONSULTATION Name: MARC MASSEY Room: [address] IN M.R.#: [id number] Admission: 04/02/21 Attend Phys: Andi Engle Discharge: Date of : 48 Report #: [id number] THIS REPORT FOR: cc: Ximena Wills Dorothy L. RNP Vardakis, Gregory DO ~ cc: NEGRO Lopez DATE OF CONSULTATION: 04/14/2021 Please note at the time of this dictation, the patient was seen and physically examined by myself. REASON FOR CONSULTATION: Possible upper GI bleed. HISTORY OF PRESENT ILLNESS: This is a 70-year-old female who developed COVID while at home, who was unvaccinated. She began running a fever and had been diagnosed; however, she was unable to get control of her fever at home and was noting that she was having some difficulty breathing and it was noted that her O2 sat was in the 80s, prompting her to come into the Emergency Room for further evaluation. The patient had only received 1 dose of her Z-LAKE. She was having a cough that was nonproductive. On admission, it was noted that she had COVID pneumonia and she was placed on oxygen. Her condition continued to deteriorate until 04/10/2021 in which she was intubated; therefore, tube feedings were started at that time. It is unclear in talking with the daughter if she does not recall her ever having any scopes done, attempt made to get a hold of the , Zack, to find out if she has ever had any endoscopic evaluation noted in the past as well. It was noted yesterday when she was prone for her O2 saturations that when they turned her back over, they noticed a little bit of blood on the sheet that was bright red blood and some noted getting in the mouth and then once she was turned back over, they had stopped tube feeding and the OG noted, a small amount of bright red blood was noted. No significant bleeding has been noted in the last 24 hours. Hemoglobin yesterday was 12.3. We are awaiting on labs for this morning to see where she is at currently. ALLERGIES: No known drug allergies. MEDICATIONS FROM HOME: See Anulex. PAST MEDICAL HISTORY: None. PAST SURGICAL HISTORY: None. FAMILY HISTORY: There is no pertinent GI [place] [address] CONSULTATION Name: MARC MASSEY Room: [address] IN [facility]#: [id number] Admission: 04/02/21 Attend Phys: Andi Engle Discharge: Date of : 48 Report #: [id number] SOCIAL HISTORY: Lifetime nonsmoker. No history of any illegal or alcohol use and she lives with her who also has COVID at the time that she did, but has recovered at home. REVIEW OF SYSTEMS: Twelve-point review of systems is essentially negative except what is mentioned in the HPI. PHYSICAL EXAMINATION: VITAL SIGNS: Temperature 37, pulse 100, respirations 16, blood pressure 90/57. HEART: Irregular rate and rhythm. LUNGS: Diminished. She is currently on the vent at 60% FiO2 and PEEP 8. She is currently off all of her pressors. ABDOMEN: Soft, positive bowel sounds in all 4 quadrants with no masses or tenderness noted. Last bowel movement was on 04/08/2021 six days ago with no obvious bright red blood or melena noted. LABORATORY DATA: Again, hemoglobin 12.3 from yesterday. White count is 13.8, platelets are 101. GFR 62. BUN is 31, creatinine 0.9, GFR 62. BNP was 1119. CT of her chest showed a small hiatal hernia. IMPRESSION: 1. Hematemesis via orogastric tube and from the mouth when she was prone. 2. Constipation. No bowel movement since 04/08/2021. 3. COVID pneumonia, on the vent. 4. Leukocytosis. 5. Thrombocytopenia. 6. Atrial fibrillation, Lovenox. PLAN: 1. Monitor for any overt bleeding. 2. Protonix IV b.i.d., continue. 3. Dulcolax suppository 20 mg now and will start Colace 100 mg b.i.d. per tube. 4. Further recommendations to be made after Dr. Strickland sees the patient and able to see where her hemoglobin is trending this a.m. Thank you for allowing us to participate in this patient's care. Please do not hesitate to call with any questions regarding this consult. Please note, spent 50 minutes in reviewing the chart and attempting to get in touch with family members. <ELECTRONICALLY SIGNED> By: Ronni Strickland DO 04/14/21 1749 0917 [id number] Strickland DO /nt
[2021-04-15] VITALS (65 sets, daily range): BP systolic 64–167; BP diastolic 38–86
[2021-04-15 06:43] LABS: HEMATOCRIT 28.7 % (37.0-47.0); HEMOGLOBIN 9.9 gm/dL (12.0-15.0); MCH 31.6 pg (26.0-34.0); MCHC 34.4 g/dL (28.0-37.0); MCV 91.8 fL (80.0-100.0); MPV 11.3 fl. (7.2-11.1); NUCLEATED RBCS 0 /100WBC; PLATELET COUNT* 117 thou/uL (150-400); RBC 3.12 mil/uL (4.20-5.00); WBC 18.7 thou/uL (4.0-11.0)
[2021-04-15 07:07] LABS: PREALBUMIN 22.3 mg/dL (18.0-35.7)
[2021-04-15 07:10] LABS: ALBUMIN 2.8 g/dL (3.4-5.0); CALCIUM 7.5 mg/dL (8.5-10.1); CREATININE 0.8 mg/dL (0.6-1.3); MAGNESIUM 2.4 mg/dL (1.8-2.4); POTASSIUM 4.6 mmol/L (3.5-5.1); TOTAL BILIRUBIN 0.9 mg/dL (<0.1-1.0); TOTAL PROTEIN 4.6 g/dL (6.4-8.2)
[2021-04-15 07:51] LABS: ABSOLUTE LYMPHOCYTES 0.4 thou/uL (0.8-5.3); ABSOLUTE NEUTROPHILS 15.3 thou/uL (1.6-8.1); PLATELET ESTIMATE DECREASED
[2021-04-15 07:52] LABS: ANISOCYTOSIS 1+; POIKILOCYTOSIS 1+
[2021-04-15 11:23] LABS: BE 5.4 mmol/L (-2 to +3); PCO2 35.9 mmHg (35.0-45.0); PO2 67.9 mmHg (75.0-100.0); pH 7.518 (7.340-7.450)
--- NOTE | 2021-04-15 14:04 | NUR ---
Case and plan of care reviewed with MD each weekday during patient's length of stay. Continue plan of care per MD orders for current dx. Remains on vent 65% FiO2. IV sedation and pressors. DPOA on chart. CM will continue to follow for Discharge planning needs.
[2021-04-15 14:51] LABS: ABSOLUTE LYMPHOCYTES 1.3 thou/uL (0.8-5.3); ABSOLUTE MONOCYTES 1.2 thou/uL (0.0-1.2); ABSOLUTE NEUTROPHILS 15.3 thou/uL (1.6-8.1); HEMATOCRIT 24.8 % (37.0-47.0); HEMOGLOBIN 8.5 gm/dL (12.0-15.0); LYMPHOCYTES 7.2 %; MCH 31.9 pg (26.0-34.0); MCHC 34.3 g/dL (28.0-37.0); MCV 92.8 fL (80.0-100.0); MONOCYTES 6.8 %; MPV 11.1 fl. (7.2-11.1); NUCLEATED RBCS 0 /100WBC; PLATELET COUNT* 115 thou/uL (150-400); RBC 2.67 mil/uL (4.20-5.00); RDW-CV 12.2 % (10.5-14.5); WBC 17.8 thou/uL (4.0-11.0)
[2021-04-15 14:58] LABS: CALCIUM 7.5 mg/dL (8.5-10.1); CREATININE 0.9 mg/dL (0.6-1.3); POTASSIUM 4.6 mmol/L (3.5-5.1)
[2021-04-15 15:02] LABS: APTT 35.8 Seconds (25.0-31.3); INR 1.6; PROTIME 16.1 Seconds (9.20-11.50)
[2021-04-15 20:46] LABS: ABSOLUTE LYMPHOCYTES 1.6 thou/uL (0.8-5.3); ABSOLUTE MONOCYTES 2.3 thou/uL (0.0-1.2); ABSOLUTE NEUTROPHILS 21.3 thou/uL (1.6-8.1); BASOPHILS 0.2 %; HEMATOCRIT 26.7 % (37.0-47.0); HEMOGLOBIN 9.1 gm/dL (12.0-15.0); LYMPHOCYTES 6.4 %; MCH 31.4 pg (26.0-34.0); MCHC 34.1 g/dL (28.0-37.0); MONOCYTES 9.1 %; NUCLEATED RBCS 0 /100WBC; PLATELET COUNT* 109 thou/uL (150-400); POLYS 84.3 %; WBC 25.3 thou/uL (4.0-11.0)
[2021-04-15 20:55] LABS: CALCIUM 7.6 mg/dL (8.5-10.1); CREATININE 0.8 mg/dL (0.6-1.3); POTASSIUM 4.1 mmol/L (3.5-5.1)
[2021-04-16] VITALS (26 sets, daily range): BP systolic 75–142; BP diastolic 50–73
[2021-04-16 05:09] LABS: ABSOLUTE LYMPHOCYTES 1.1 thou/uL (0.8-5.3); ABSOLUTE MONOCYTES 1.1 thou/uL (0.0-1.2); ABSOLUTE NEUTROPHILS 15.4 thou/uL (1.6-8.1); BASOPHILS 0.1 %; HEMATOCRIT 21.8 % (37.0-47.0); HEMOGLOBIN 7.6 gm/dL (12.0-15.0); MCH 31.9 pg (26.0-34.0); MCHC 34.7 g/dL (28.0-37.0); MCV 91.7 fL (80.0-100.0); MPV 11.1 fl. (7.2-11.1); NUCLEATED RBCS 0 /100WBC; PLATELET COUNT* 74 thou/uL (150-400); POLYS 87.9 %; RBC 2.37 mil/uL (4.20-5.00); RDW-CV 11.9 % (10.5-14.5); WBC 17.5 thou/uL (4.0-11.0)
[2021-04-16 05:16] LABS: ALBUMIN 2.9 g/dL (3.4-5.0); CALCIUM 7.6 mg/dL (8.5-10.1); CREATININE 0.7 mg/dL (0.6-1.3); MAGNESIUM 2.2 mg/dL (1.8-2.4); POTASSIUM 4.4 mmol/L (3.5-5.1); TOTAL BILIRUBIN 0.9 mg/dL (<0.1-1.0); TOTAL PROTEIN 4.3 g/dL (6.4-8.2)
[2021-04-16 09:27] LABS: BE 1.9 mmol/L (-2 to +3); PCO2 43.5 mmHg (35.0-45.0); PO2 83.4 mmHg (75.0-100.0); pH 7.407 (7.340-7.450)
--- NOTE | 2021-04-16 12:29 | NUR ---
Case and plan of care reviewed with MD each weekday during patient's length of stay. Continue plan of care per MD orders for current dx. Remains on vent70% FiO2, IV pressors and sedation. EGD today r/t blood in OG tube. DPOA on chart. CM will continue to follow for discharge planning needs.
[2021-04-16 17:41] LABS: ABSOLUTE LYMPHOCYTES 0.5 thou/uL (0.8-5.3); ABSOLUTE MONOCYTES 1.2 thou/uL (0.0-1.2); ABSOLUTE NEUTROPHILS 15.6 thou/uL (1.6-8.1); BASOPHILS 0.1 %; HEMATOCRIT 21.4 % (37.0-47.0); HEMOGLOBIN 7.3 gm/dL (12.0-15.0); LYMPHOCYTES 2.6 %; MCH 31.4 pg (26.0-34.0); MCHC 34.1 g/dL (28.0-37.0); MCV 92.1 fL (80.0-100.0); MPV 10.8 fl. (7.2-11.1); NUCLEATED RBCS 0 /100WBC; PLATELET COUNT* 78 thou/uL (150-400); POLYS 90.3 %; RBC 2.33 mil/uL (4.20-5.00); WBC 17.3 thou/uL (4.0-11.0)
[2021-04-16 17:47] LABS: CALCIUM 7.7 mg/dL (8.5-10.1); CREATININE 0.8 mg/dL (0.6-1.3); MAGNESIUM 2.3 mg/dL (1.8-2.4); POTASSIUM 3.8 mmol/L (3.5-5.1)
[2021-04-17] VITALS (65 sets, daily range): BP systolic 61–137; BP diastolic 43–89
[2021-04-17 04:30] LABS: ABSOLUTE LYMPHOCYTES 0.7 thou/uL (0.8-5.3); ABSOLUTE MONOCYTES 1.6 thou/uL (0.0-1.2); ABSOLUTE NEUTROPHILS 28.2 thou/uL (1.6-8.1); HEMATOCRIT 24.6 % (37.0-47.0); HEMOGLOBIN 8.3 gm/dL (12.0-15.0); LYMPHOCYTES 2.2 %; MCH 31.2 pg (26.0-34.0); MCHC 33.8 g/dL (28.0-37.0); MCV 92.3 fL (80.0-100.0); MONOCYTES 5.3 %; MPV 10.6 fl. (7.2-11.1); NUCLEATED RBCS 0 /100WBC; PLATELET COUNT* 102 thou/uL (150-400); POLYS 92.5 %; RBC 2.66 mil/uL (4.20-5.00); RDW-CV 12.5 % (10.5-14.5); WBC 30.6 thou/uL (4.0-11.0)
[2021-04-17 04:50] LABS: ALBUMIN 3.5 g/dL (3.4-5.0); CALCIUM 7.8 mg/dL (8.5-10.1); CREATININE 0.7 mg/dL (0.6-1.3); POTASSIUM 4.1 mmol/L (3.5-5.1); TOTAL PROTEIN 4.9 g/dL (6.4-8.2)
--- NOTE | 2021-04-17 06:52 | NUR ---
DR. RANGEL NOTIFIED REGARDING RESULTS OF CHEST XRAY. ORDER TO CONSULT DR. CARMONA AND TURN PEEP TO 0 FOR PROBABLE PNEUMOTHORAX. PT. WAS UNPRONED AT 2345 DUE TO DECREASING BLOOD PRESSURE AND TACHYCARDIA. NECK AREA INCREASING IN SIZE, INCREASING SUBCUTANEOUS EMPHYSEMA. WILL CONTINUE TO MONITOR.
[2021-04-17 09:38] LABS: BE 1.6 mmol/L (-2 to +3); PCO2 39.2 mmHg (35.0-45.0); PO2 60.6 mmHg (75.0-100.0); pH 7.438 (7.340-7.450)
--- NOTE | 2021-04-17 12:06 | NUR ---
Case and plan of care reviewed with MD each weekday during patient's length of stay. Continue plan of care per MD orders for current dx. Remains on vent 100 FiO2, Iv Sedation.Iv pressors New right apical pneumothorax and subcu air in neck, as well as pneumomediastinum-chest tube placed this am. DPOA on the chart CM will continue to follow for discharge planning needs,
[2021-04-17 14:54] LABS: URINE BILIRUBIN NEGATIVE (Negative); URINE BLOOD 2+ (Negative); URINE CLARITY CLOUDY; URINE COLOR YELLOW; URINE GLUCOSE-RANDOM NEGATIVE (Negative); URINE KETONES NEGATIVE (Negative); URINE LEUKOCYTES-REFLEX NEGATIVE (Negative); URINE NITRITE-REFLEX NEGATIVE (Negative); URINE PROTEIN 1+ (Negative); URINE SPECIFIC GRAVITY 1.025 (1.005-1.030); URINE UROBILINOGEN 0.2 E.U./dl (0.2-1.0)
[2021-04-17 15:15] LABS: MUCUS None Seen strn/LPF (None Seen); SQUAMOUS 0-3 Few /LPF (0-3); URINE WBC-REFLEX 0-5 Rare /HPF (0-5); YEAST-REFLEX Present (None Seen)
[2021-04-17 15:16] LABS: CASTS None Seen /LPF (None Seen); URINE RBC 0-2 Rare /HPF (0-2)
[2021-04-17 15:17] LABS: BACTERIA-REFLEX 1-9 Few /HPF (None Seen); CRYSTALS None Seen /LPF (None Seen)
[2021-04-18] VITALS (68 sets, daily range): BP systolic 71–161; BP diastolic 34–99
[2021-04-18 03:54] LABS: ABSOLUTE BASOPHILS 0.2 thou/uL (0.0-0.2); ABSOLUTE LYMPHOCYTES 0.5 thou/uL (0.8-5.3); ABSOLUTE NEUTROPHILS 25.8 thou/uL (1.6-8.1); BASOPHILS 0.7 %; HEMATOCRIT 23.4 % (37.0-47.0); LYMPHOCYTES 1.9 %; MCH 31.7 pg (26.0-34.0); MCHC 34.1 g/dL (28.0-37.0); MCV 92.8 fL (80.0-100.0); MONOCYTES 3.7 %; MPV 10.7 fl. (7.2-11.1); NUCLEATED RBCS 0 /100WBC; PLATELET COUNT* 98 thou/uL (150-400); POLYS 93.7 %; RBC 2.53 mil/uL (4.20-5.00); RDW-CV 12.3 % (10.5-14.5); WBC 27.5 thou/uL (4.0-11.0)
[2021-04-18 04:29] LABS: ALBUMIN 3.1 g/dL (3.4-5.0); CREATININE 0.5 mg/dL (0.6-1.3); POTASSIUM 4.4 mmol/L (3.5-5.1); TOTAL BILIRUBIN 0.9 mg/dL (<0.1-1.0); TOTAL PROTEIN 4.7 g/dL (6.4-8.2)
[2021-04-18 09:29] LABS: BE 0.4 mmol/L (-2 to +3); PCO2 45.8 mmHg (35.0-45.0)
[2021-04-18 09:31] LABS: PO2 33.7 mmHg (75.0-100.0)
[2021-04-18 09:45] LABS: BE 1.9 mmol/L (-2 to +3); PCO2 38.7 mmHg (35.0-45.0); PO2 60.3 mmHg (75.0-100.0); pH 7.446 (7.340-7.450)
--- NOTE | 2021-04-18 14:19 | NUR ---
Pt on vent and sedated. Chest tube. Cxr. CT of abd/pelvis today
[2021-04-19] VITALS (66 sets, daily range): BP systolic 79–142; BP diastolic 45–74
[2021-04-19 07:45] LABS: ABSOLUTE BASOPHILS 0.2 thou/uL (0.0-0.2); ABSOLUTE LYMPHOCYTES 0.4 thou/uL (0.8-5.3); ABSOLUTE MONOCYTES 0.7 thou/uL (0.0-1.2); ABSOLUTE NEUTROPHILS 26.1 thou/uL (1.6-8.1); BASOPHILS 0.9 %; EOSINOPHILS 0.1 %; HEMATOCRIT 21.4 % (37.0-47.0); HEMOGLOBIN 7.2 gm/dL (12.0-15.0); LYMPHOCYTES 1.4 %; MCH 31.9 pg (26.0-34.0); MCHC 33.6 g/dL (28.0-37.0); MONOCYTES 2.4 %; MPV 9.8 fl. (7.2-11.1); NUCLEATED RBCS 1 /100WBC; PLATELET COUNT* 85 thou/uL (150-400); POLYS 95.2 %; RBC 2.25 mil/uL (4.20-5.00); RDW-CV 12.5 % (10.5-14.5); WBC 27.4 thou/uL (4.0-11.0)
[2021-04-19 08:24] LABS: ALBUMIN 2.6 g/dL (3.4-5.0); CALCIUM 7.7 mg/dL (8.5-10.1); CREATININE 0.6 mg/dL (0.6-1.3); MAGNESIUM 2.4 mg/dL (1.8-2.4); PHOSPHORUS* 3.9 mg/dL (2.5-4.9); POTASSIUM 3.7 mmol/L (3.5-5.1); TOTAL BILIRUBIN 0.8 mg/dL (<0.1-1.0); TOTAL PROTEIN 4.1 g/dL (6.4-8.2)
[2021-04-19 10:15] LABS: BE 1.2 mmol/L (-2 to +3); PCO2 41.8 mmHg (35.0-45.0); PO2 63.6 mmHg (75.0-100.0); pH 7.411 (7.340-7.450)
[2021-04-19 17:35] LABS: HEMATOCRIT 20.5 % (37.0-47.0); MCHC 33.5 g/dL (28.0-37.0); MCV 95.5 fL (80.0-100.0); MPV 10.1 fl. (7.2-11.1); NUCLEATED RBCS 1 /100WBC; PLATELET COUNT* 67 thou/uL (150-400); RBC 2.15 mil/uL (4.20-5.00); RDW-CV 12.9 % (10.5-14.5); WBC 21.8 thou/uL (4.0-11.0)
[2021-04-19 17:38] LABS: HEMOGLOBIN 6.9 gm/dL (12.0-15.0)
[2021-04-19 17:43] LABS: CALCIUM 7.9 mg/dL (8.5-10.1); CREATININE 0.7 mg/dL (0.6-1.3); MAGNESIUM 2.6 mg/dL (1.8-2.4); POTASSIUM 3.9 mmol/L (3.5-5.1)
[2021-04-19 17:48] LABS: APTT 25.1 Seconds (25.0-31.3); INR 1.5; PROTIME 15.1 Seconds (9.20-11.50)
[2021-04-19 17:58] LABS: ABSOLUTE LYMPHOCYTES 0.4 thou/uL (0.8-5.3); ABSOLUTE MONOCYTES 0.4 thou/uL (0.0-1.2); ABSOLUTE NEUTROPHILS 20.9 thou/uL (1.6-8.1)
[2021-04-19 17:59] LABS: PLATELET ESTIMATE DECREASED
[2021-04-19 18:00] LABS: ANISOCYTOSIS 1+; MACROCYTES 1+
[2021-04-20] VITALS (56 sets, daily range): BP systolic 82–154; BP diastolic 46–75
--- NOTE | 2021-04-20 04:06 | NUR ---
ASSUMED CARE AT 1910H, ON VENT AT 65% AND TOLERATED. ON VERSED AND FENTANYL DRIP. 1 UNIT PRBC GIVEN. HECTOR OFF EARLY IN MY SHIFT. NO FEVER AND NO DISTRESS. PT PRONED AT 2129H. TUBE FEEDING HELD. CONTINUE MONITORING AND TOWARDS GOALS. VERSED UP TO 10MG/HR.
[2021-04-20 06:53] LABS: HEMOGLOBIN 8.1 gm/dL (12.0-15.0)
[2021-04-20 06:55] LABS: HEMATOCRIT 23.6 % (37.0-47.0); MCH 30.4 pg (26.0-34.0); MCHC 34.2 g/dL (28.0-37.0); MPV 8.7 fl. (7.2-11.1); RBC 2.66 mil/uL (4.20-5.00); RDW-CV 18.2 % (10.5-14.5); WBC 17.2 thou/uL (4.0-11.0)
[2021-04-20 07:07] LABS: MCV 88.9 fL (80.0-100.0)
[2021-04-20 07:21] LABS: ALBUMIN 2.2 g/dL (3.4-5.0); CALCIUM 7.2 mg/dL (8.5-10.1); CREATININE 0.6 mg/dL (0.6-1.3); MAGNESIUM 2.3 mg/dL (1.8-2.4); POTASSIUM 3.9 mmol/L (3.5-5.1); TOTAL BILIRUBIN 0.9 mg/dL (<0.1-1.0); TOTAL PROTEIN 3.7 g/dL (6.4-8.2)
[2021-04-20 09:11] LABS: BE -0.2 mmol/L (-2 to +3); PCO2 34.4 mmHg (35.0-45.0); pH 7.452 (7.340-7.450)
[2021-04-20 09:19] LABS: PO2 138.7 mmHg (75.0-100.0)
[2021-04-21] VITALS (261 sets, daily range): BP systolic 49–149; BP diastolic 12–94
--- NOTE | 2021-04-21 05:50 | NUR ---
ASSUMED CARE AT 1910H, ON VENT AT 85% AND TOLERATED. ON SEDATION. NO FEVER NOTED. WITH EPISODES OF TACHYCARDIA/SVT WHEN SHE COUGHS. UPDATE GIVEN TO DTR. PRONED AT MIDNIGHT, SEDATION INCREASED. TUBE FEEDING CONTINUED AND HIGHEST RESIDUAL AT 220ML. CONTINUE MONITORING AND TOWARDS GOALS. VERSED AT 15MG/HR.
[2021-04-21 06:52] LABS: ABSOLUTE BASOPHILS 0.2 thou/uL (0.0-0.2); ABSOLUTE LYMPHOCYTES 0.2 thou/uL (0.8-5.3); ABSOLUTE MONOCYTES 0.1 thou/uL (0.0-1.2); ABSOLUTE NEUTROPHILS 14.1 thou/uL (1.6-8.1); HEMATOCRIT 22.8 % (37.0-47.0); HEMOGLOBIN 7.6 gm/dL (12.0-15.0); LYMPHOCYTES 1.3 %; MCH 30.2 pg (26.0-34.0); MCHC 33.3 g/dL (28.0-37.0); MCV 90.7 fL (80.0-100.0); MONOCYTES 0.9 %; MPV 8.8 fl. (7.2-11.1); NUCLEATED RBCS 0 /100WBC; POLYS 96.8 %; RBC 2.51 mil/uL (4.20-5.00); RDW-CV 17.8 % (10.5-14.5); WBC 14.6 thou/uL (4.0-11.0)
[2021-04-21 06:53] LABS: PLATELET COUNT* 47 thou/uL (150-400)
[2021-04-21 07:18] LABS: ALBUMIN 2.5 g/dL (3.4-5.0); CALCIUM 7.8 mg/dL (8.5-10.1); CREATININE 0.6 mg/dL (0.6-1.3); MAGNESIUM 2.3 mg/dL (1.8-2.4); PHOSPHORUS* 3.3 mg/dL (2.5-4.9); POTASSIUM 3.9 mmol/L (3.5-5.1); TOTAL BILIRUBIN 0.8 mg/dL (<0.1-1.0); TOTAL PROTEIN 4.1 g/dL (6.4-8.2)
[2021-04-21 09:26] LABS: BE 1.9 mmol/L (-2 to +3); PCO2 37.7 mmHg (35.0-45.0); PO2 68.9 mmHg (75.0-100.0); pH 7.455 (7.340-7.450)
--- NOTE | 2021-04-21 14:58 | NUR ---
Intermittent weaning, minimal progress. Remains on vent, fio2 75%. ID following for fevers. Pressors. Tube feeds.
[2021-04-22] VITALS (64 sets, daily range): BP systolic 82–152; BP diastolic 47–126
[2021-04-22 03:31] LABS: HEMATOCRIT 23.2 % (37.0-47.0); HEMOGLOBIN 7.8 gm/dL (12.0-15.0); MCH 30.6 pg (26.0-34.0); MCHC 33.6 g/dL (28.0-37.0); MCV 91.1 fL (80.0-100.0); MPV 8.8 fl. (7.2-11.1); NUCLEATED RBCS 0 /100WBC; PLATELET COUNT* 51 thou/uL (150-400); RBC 2.54 mil/uL (4.20-5.00); RDW-CV 18.2 % (10.5-14.5); WBC 15.7 thou/uL (4.0-11.0)
[2021-04-22 04:05] LABS: ALBUMIN 2.8 g/dL (3.4-5.0); CALCIUM 8.2 mg/dL (8.5-10.1); CREATININE 0.5 mg/dL (0.6-1.3); MAGNESIUM 2.1 mg/dL (1.8-2.4); POTASSIUM 3.7 mmol/L (3.5-5.1); TOTAL BILIRUBIN 0.8 mg/dL (<0.1-1.0); TOTAL PROTEIN 4.7 g/dL (6.4-8.2)
[2021-04-22 05:55] LABS: ABSOLUTE LYMPHOCYTES 0.3 thou/uL (0.8-5.3); ABSOLUTE NEUTROPHILS 15.4 thou/uL (1.6-8.1); ANISOCYTOSIS 1+; PLATELET ESTIMATE DECREASED
[2021-04-22 05:56] LABS: POIKILOCYTOSIS 1+; POLYCHROMASIA 1+
[2021-04-22 07:59] LABS: BE 3.4 mmol/L (-2 to +3); PCO2 42.2 mmHg (35.0-45.0); pH 7.438 (7.340-7.450)
[2021-04-22 08:01] LABS: PO2 126.9 mmHg (75.0-100.0)
[2021-04-23] VITALS (48 sets, daily range): BP systolic 87–147; BP diastolic 40–68
[2021-04-23 05:38] LABS: ABSOLUTE LYMPHOCYTES 0.1 thou/uL (0.8-5.3); ABSOLUTE MONOCYTES 0.1 thou/uL (0.0-1.2); BASOPHILS 0.3 %; HEMOGLOBIN 7.9 gm/dL (12.0-15.0); LYMPHOCYTES 1.6 %; MCH 31.4 pg (26.0-34.0); MCHC 34.4 g/dL (28.0-37.0); MCV 91.2 fL (80.0-100.0); MPV 9.5 fl. (7.2-11.1); NUCLEATED RBCS 0 /100WBC; POLYS 97.1 %; RBC 2.52 mil/uL (4.20-5.00); RDW-CV 18.2 % (10.5-14.5); WBC 8.2 thou/uL (4.0-11.0)
[2021-04-23 05:51] LABS: ALBUMIN 2.8 g/dL (3.4-5.0); CALCIUM 8.3 mg/dL (8.5-10.1); CREATININE 0.5 mg/dL (0.6-1.3); MAGNESIUM 2.1 mg/dL (1.8-2.4); POTASSIUM 4.1 mmol/L (3.5-5.1); TOTAL BILIRUBIN 0.8 mg/dL (<0.1-1.0); TOTAL PROTEIN 4.9 g/dL (6.4-8.2)
[2021-04-23 05:59] LABS: PLATELET COUNT* 41 thou/uL (150-400)
[2021-04-23 08:53] LABS: BE 0.4 mmol/L (-2 to +3); PO2 78.6 mmHg (75.0-100.0); pH 7.476 (7.340-7.450)
--- NOTE | 2021-04-23 13:57 | NUR ---
Pt intubated and sedated, fio2 85%. Prone. Chest tube. Cxr today.
[2021-04-24] VITALS (50 sets, daily range): BP systolic 71–167; BP diastolic 40–98
[2021-04-24 06:09] LABS: ABSOLUTE LYMPHOCYTES 0.1 thou/uL (0.8-5.3); ABSOLUTE MONOCYTES 0.1 thou/uL (0.0-1.2); ABSOLUTE NEUTROPHILS 6.9 thou/uL (1.6-8.1); BASOPHILS 0.4 %; HEMATOCRIT 21.9 % (37.0-47.0); HEMOGLOBIN 7.4 gm/dL (12.0-15.0); MCH 31.3 pg (26.0-34.0); MONOCYTES 1.7 %; MPV 9.4 fl. (7.2-11.1); NUCLEATED RBCS 1 /100WBC; POLYS 96.9 %; RBC 2.38 mil/uL (4.20-5.00); RDW-CV 20.1 % (10.5-14.5); WBC 7.2 thou/uL (4.0-11.0)
--- NOTE | 2021-04-24 06:11 | NUR ---
PT PLACED IN PRONE POSITION AT 0400. TUBE FEEDING STOPPED AT 0100, RESIDUAL > 200 AT THAT TIME.
[2021-04-24 06:13] LABS: PLATELET COUNT* 35 thou/uL (150-400)
[2021-04-24 06:31] LABS: ALBUMIN 3.2 g/dL (3.4-5.0); CALCIUM 8.7 mg/dL (8.5-10.1); CREATININE 0.6 mg/dL (0.6-1.3); MAGNESIUM 2.2 mg/dL (1.8-2.4); POTASSIUM 3.7 mmol/L (3.5-5.1); TOTAL BILIRUBIN 0.7 mg/dL (<0.1-1.0); TOTAL PROTEIN 5.3 g/dL (6.4-8.2)
[2021-04-24 08:34] LABS: PO2 82.6 mmHg (75.0-100.0)
[2021-04-24 08:36] LABS: PCO2 44.3 mmHg (35.0-45.0); pH 7.417 (7.340-7.450)
--- NOTE | 2021-04-24 11:38 | NUR ---
Pt remains on vent 85% fio2. Pressors. Tube feeds. Chest tube. Trach/peg when appropriate
[2021-04-25] VITALS (39 sets, daily range): BP systolic 95–166; BP diastolic 41–71
[2021-04-25 05:37] LABS: ABSOLUTE LYMPHOCYTES 0.2 thou/uL (0.8-5.3); ABSOLUTE MONOCYTES 0.2 thou/uL (0.0-1.2); ABSOLUTE NEUTROPHILS 7.2 thou/uL (1.6-8.1); BASOPHILS 0.1 %; EOSINOPHILS 0.2 %; HEMOGLOBIN 7.8 gm/dL (12.0-15.0); LYMPHOCYTES 2.7 %; MCH 31.3 pg (26.0-34.0); MCHC 34.1 g/dL (28.0-37.0); MCV 91.8 fL (80.0-100.0); MONOCYTES 2.5 %; MPV 9.7 fl. (7.2-11.1); NUCLEATED RBCS 1 /100WBC; POLYS 94.5 %; RDW-CV 20.2 % (10.5-14.5); WBC 7.7 thou/uL (4.0-11.0)
[2021-04-25 05:42] LABS: PLATELET COUNT* 45 thou/uL (150-400)
[2021-04-25 05:52] LABS: CALCIUM 8.5 mg/dL (8.5-10.1); CREATININE 0.5 mg/dL (0.6-1.3); POTASSIUM 3.9 mmol/L (3.5-5.1); TOTAL BILIRUBIN 0.8 mg/dL (<0.1-1.0); TOTAL PROTEIN 5.3 g/dL (6.4-8.2)
[2021-04-25 07:58] LABS: PCO2 33.6 mmHg (35.0-45.0); PO2 71.4 mmHg (75.0-100.0); pH 7.479 (7.340-7.450)
--- NOTE | 2021-04-25 14:19 | NUR ---
cm contacted pt's spouse, sarahy, to provided emotional support. per sarahy, is is doing well. he has a supportive family and buddhism community. sarahy stated his dtr stays in contact with hospital and gets regualar updates on the pt's condition. sarahy stated, "we couldnt be more pleased" with hospital. icu rounds: pt cont on vent, titrating fio2 as pt can tolerate. pt sedated. tube feeding. chest tube. prognosis guarded.
[2021-04-26] VITALS (48 sets, daily range): BP systolic 75–156; BP diastolic -31–82
[2021-04-26 06:07] LABS: HEMATOCRIT 21.8 % (37.0-47.0); HEMOGLOBIN 7.3 gm/dL (12.0-15.0); MCH 30.9 pg (26.0-34.0); MCHC 33.4 g/dL (28.0-37.0); MCV 92.5 fL (80.0-100.0); MPV 9.7 fl. (7.2-11.1); NUCLEATED RBCS 1 /100WBC; RBC 2.36 mil/uL (4.20-5.00); WBC 6.1 thou/uL (4.0-11.0)
[2021-04-26 06:36] LABS: PLATELET COUNT* 42 thou/uL (150-400)
[2021-04-26 07:05] LABS: ABSOLUTE LYMPHOCYTES 0.2 thou/uL (0.8-5.3); ABSOLUTE NEUTROPHILS 5.9 thou/uL (1.6-8.1); PLATELET ESTIMATE DECREASED
[2021-04-26 09:58] LABS: PCO2 38.8 mmHg (35.0-45.0); pH 7.446 (7.340-7.450)
[2021-04-26 14:22] LABS: ALBUMIN 2.8 g/dL (3.4-5.0); CALCIUM 8.3 mg/dL (8.5-10.1); CREATININE 0.5 mg/dL (0.6-1.3); MAGNESIUM 2.2 mg/dL (1.8-2.4); POTASSIUM 4.4 mmol/L (3.5-5.1); TOTAL BILIRUBIN 0.6 mg/dL (<0.1-1.0); TOTAL PROTEIN 5.3 g/dL (6.4-8.2)
[2021-04-27] VITALS (48 sets, daily range): BP systolic 98–147; BP diastolic 54–78
[2021-04-27 06:18] LABS: HEMATOCRIT 22.3 % (37.0-47.0); HEMOGLOBIN 7.4 gm/dL (12.0-15.0); MCHC 33.3 g/dL (28.0-37.0); MCV 93.1 fL (80.0-100.0); MPV 10.6 fl. (7.2-11.1); RBC 2.39 mil/uL (4.20-5.00); RDW-CV 21.3 % (10.5-14.5); WBC 4.9 thou/uL (4.0-11.0)
[2021-04-27 06:25] LABS: ALBUMIN 2.6 g/dL (3.4-5.0); CALCIUM 7.9 mg/dL (8.5-10.1); CREATININE 0.5 mg/dL (0.6-1.3); MAGNESIUM 2.1 mg/dL (1.8-2.4); POTASSIUM 4.7 mmol/L (3.5-5.1); TOTAL BILIRUBIN 0.6 mg/dL (<0.1-1.0); TOTAL PROTEIN 5.5 g/dL (6.4-8.2)
--- NOTE | 2021-04-27 06:37 | NUR ---
PT. PRONED AT 0500. TOLERATING WELL.
[2021-04-27 11:48] LABS: BE 1.2 mmol/L (-2 to +3); PCO2 49.8 mmHg (35.0-45.0); PO2 73.5 mmHg (75.0-100.0); pH 7.353 (7.340-7.450)
[2021-04-28] VITALS (78 sets, daily range): BP systolic 93–157; BP diastolic 21–91
--- NOTE | 2021-04-28 04:58 | NUR ---
PT. PRONED AT 1267
--- NOTE | 2021-04-28 08:45 | NUR ---
ICU ROUNDS: VENT. SEDATED. PRONE TOLERATE. CHEST TUBE. SPOUSE COPING WELL.
[2021-04-28 11:12] LABS: PCO2 48.8 mmHg (35.0-45.0); PO2 78.1 mmHg (75.0-100.0); pH 7.397 (7.340-7.450)
--- NOTE | 2021-04-28 12:51 | EKG ---
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 : 1950 Requested By: Karel Talley Order Number: [id number] Nir MD: Mauricio Bai Measurements Intervals [place] Rate: 114 P: MA: QRS: 36 QRSD: 83 T: 209 QT: 352 QTc: 485 Interpretive Statements Atrial fibrillation Abnormal lateral Q waves Anterior infarct, old Borderline repolarization abnormality Baseline wander in lead(s) I,III,aVL Compared to ECG 04/05/2021 10:17:56 Q waves now present Myocardial infarct finding now present Electronically Signed On 04-28-2021 12:51:38 CDT by Mauricio Bai [email or web address] <ELECTRONICALLY SIGNED> By: Mauricio Bai MD, [facility] 04/28/21 1251 1125 1125 Mauricio Bai MD, [facility] /EPI
[2021-04-28 12:52] LABS: ABSOLUTE LYMPHOCYTES 0.1 thou/uL (0.8-5.3); ABSOLUTE MONOCYTES 0.1 thou/uL (0.0-1.2); ABSOLUTE NEUTROPHILS 3.2 thou/uL (1.6-8.1); BASOPHILS 0.1 %; EOSINOPHILS 0.1 %; HEMATOCRIT 22.7 % (37.0-47.0); HEMOGLOBIN 7.6 gm/dL (12.0-15.0); LYMPHOCYTES 4.2 %; MCHC 33.3 g/dL (28.0-37.0); MCV 93.1 fL (80.0-100.0); MONOCYTES 1.9 %; MPV 9.5 fl. (7.2-11.1); NUCLEATED RBCS 0 /100WBC; POLYS 93.7 %; RBC 2.44 mil/uL (4.20-5.00); RDW-CV 20.7 % (10.5-14.5); WBC 3.5 thou/uL (4.0-11.0)
[2021-04-28 12:58] LABS: PLATELET COUNT* 34 thou/uL (150-400)
[2021-04-28 13:08] LABS: ALBUMIN 2.3 g/dL (3.4-5.0); CALCIUM 7.7 mg/dL (8.5-10.1); CREATININE 0.5 mg/dL (0.6-1.3); MAGNESIUM 1.9 mg/dL (1.8-2.4); POTASSIUM 3.8 mmol/L (3.5-5.1); TOTAL BILIRUBIN 0.6 mg/dL (<0.1-1.0); TOTAL PROTEIN 5.2 g/dL (6.4-8.2)
[2021-04-29] VITALS (46 sets, daily range): BP systolic 71–170; BP diastolic 48–80
[2021-04-29 05:13] LABS: HEMATOCRIT 22.9 % (37.0-47.0); HEMOGLOBIN 7.6 gm/dL (12.0-15.0); MCH 31.1 pg (26.0-34.0); MCHC 33.3 g/dL (28.0-37.0); MCV 93.4 fL (80.0-100.0); MPV 10.1 fl. (7.2-11.1); NUCLEATED RBCS 0 /100WBC; RBC 2.45 mil/uL (4.20-5.00); RDW-CV 21.6 % (10.5-14.5); WBC 4.1 thou/uL (4.0-11.0)
[2021-04-29 05:28] LABS: ALBUMIN 2.3 g/dL (3.4-5.0); CREATININE 0.5 mg/dL (0.6-1.3); POTASSIUM 4.1 mmol/L (3.5-5.1); TOTAL BILIRUBIN 0.6 mg/dL (<0.1-1.0); TOTAL PROTEIN 5.3 g/dL (6.4-8.2)
[2021-04-29 05:59] LABS: PLATELET COUNT* 38 thou/uL (150-400)
--- NOTE | 2021-04-29 07:52 | 2DMMODE ---
[place] [address] 2 D/M-MODE ECHOCARDIOGRAM Name: BRYSONMARC Andi Room: 004[facility] IN [facility]#: [id number] Admission: 04/02/21 Attend Phys: Anthony Whitfield Discharge: Date of : 48 Date of Service: 04/29/21 0752 Report #: [id number] THIS REPORT FOR: cc: Ximena Wills Dorothy L. RNP Liston, Michael J. MD [facility] ~ APPROVED REPORT Study performed: 04/28/2021 16:30:09 EXAM: Comprehensive 2D, Doppler, and color-flow Echocardiogram Patient Location: In-Patient Room #: 004 Status: routine BSA: 1.71 HR: 129 bpm BP: 90/51 mmHg Rhythm: NSR Other Information Study Quality: Good Tricuspid Valve RAP Estimate: 5.00 mmHg TR Peak Gr.: 22.49 mmHg RVSP: 27.00 mmHg PA Pressure: 27.00 mmHg Left Ventricle The left ventricle is normal size. There is normal LV segmental wall motion. Mild concentric left ventricular hypertrophy. Left ventricular systolic function is hyperdynamic. LVEF is >70%. Right Ventricle The right ventricle is normal size. The right ventricular systolic function is normal. Atria Left atrium is mildly dilated. Right atrium is mildly dilated. Aortic Valve The aortic valve is normal in structure. [address] [address] 2 D/M-MODE ECHOCARDIOGRAM Name: MARC MASSEY Room: [address] IN .R.#: [id number] Admission: 04/02/21 Attend Phys: Anthony Whitfield Discharge: Date of : 48 Date of Service: 04/29/21751 Report #: [id number] Mitral Valve The mitral valve is normal in structure. Tricuspid Valve The tricuspid valve is normal in structure. Trace tricuspid regurgitation. No pulmonary hypertension. Pulmonic Valve The pulmonary valve is normal in structure. Great Vessels The aortic root is normal in size. IVC is normal in size and collapses >50% with inspiration. Pericardium There is no pericardial effusion. <Conclusion> The left ventricle is normal size. Mild concentric left ventricular hypertrophy. Left ventricular systolic function is hyperdynamic. LVEF is >70%. Left atrium is mildly dilated. Right atrium is mildly dilated. Trace tricuspid regurgitation. No pulmonary hypertension. <ELECTRONICALLY SIGNED> By: Víctor Daley MD, [facility] 04/29/21 0752 1 0752 Víctor Daley MD, FACC /INF
[2021-04-29 08:34] LABS: BE 7.3 mmol/L (-2 to +3); PCO2 40.8 mmHg (35.0-45.0)
[2021-04-29 08:36] LABS: PO2 59.2 mmHg (75.0-100.0)
[2021-04-29 09:18] LABS: ABSOLUTE LYMPHOCYTES 0.1 thou/uL (0.8-5.3); ABSOLUTE MONOCYTES 0.2 thou/uL (0.0-1.2); ABSOLUTE NEUTROPHILS 3.8 thou/uL (1.6-8.1); ANISOCYTOSIS 1+; HYPOCHROMASIA Occasional; OVALOCYTES 1+; PLATELET ESTIMATE DECREASED; POIKILOCYTOSIS 1+; POLYCHROMASIA Occasional
--- NOTE | 2021-04-29 16:38 | NUR ---
Case and plan of care reviewed with MD each weekday during patient's length of stay. Continue plan of care per MD orders. Remains on vent 70 FiO2 and IV Sedation. Surgery consulted to follow for trach/peg need when stable. CM will continue to follow for discharge planning needs.
[2021-04-30] VITALS (49 sets, daily range): BP systolic 80–159; BP diastolic 43–74
[2021-04-30 04:34] LABS: ALBUMIN 2.9 g/dL (3.4-5.0); CALCIUM 8.4 mg/dL (8.5-10.1); CREATININE 0.4 mg/dL (0.6-1.3); MAGNESIUM 2.2 mg/dL (1.8-2.4); POTASSIUM 4.4 mmol/L (3.5-5.1); TOTAL BILIRUBIN 0.7 mg/dL (<0.1-1.0); TOTAL PROTEIN 5.9 g/dL (6.4-8.2)
[2021-04-30 04:41] LABS: HEMATOCRIT 24.7 % (37.0-47.0); HEMOGLOBIN 8.2 gm/dL (12.0-15.0); MCH 31.5 pg (26.0-34.0); MCHC 33.4 g/dL (28.0-37.0); MCV 94.5 fL (80.0-100.0); MPV 10.2 fl. (7.2-11.1); RBC 2.61 mil/uL (4.20-5.00); RDW-CV 22.4 % (10.5-14.5); WBC 4.6 thou/uL (4.0-11.0)
--- NOTE | 2021-04-30 06:39 | NUR ---
PT. PRONED AT 9534
[2021-04-30 08:47] LABS: BE 4.8 mmol/L (-2 to +3); PCO2 43.3 mmHg (35.0-45.0); PO2 77.6 mmHg (75.0-100.0); pH 7.448 (7.340-7.450)
--- NOTE | 2021-04-30 14:36 | NUR ---
ICU ROUNDS: PT ON VENT. SEDATED. PRONED THIS AM.
--- NOTE | 2021-04-30 21:42 | NUR ---
O2 SAT 85%. PT REPOSITIONED AND SUCTIONED. FIO2 INCREASED TO 100%. ATTEMPTING TO PAGE PULMONOLOGY. NO ANSWER PER ANSWERING SERVICE. OFFICE 365 CONSULTANT AWARE.
[2021-05-01] VITALS (78 sets, daily range): BP systolic 41–129; BP diastolic 25–65
[2021-05-01 04:48] LABS: HEMATOCRIT 21.8 % (37.0-47.0); HEMOGLOBIN 7.3 gm/dL (12.0-15.0); MCH 31.7 pg (26.0-34.0); MCHC 33.3 g/dL (28.0-37.0); MPV 9.6 fl. (7.2-11.1); RBC 2.29 mil/uL (4.20-5.00); RDW-CV 23.5 % (10.5-14.5); WBC 4.9 thou/uL (4.0-11.0)
[2021-05-01 05:09] LABS: ALBUMIN 2.7 g/dL (3.4-5.0); CALCIUM 8.1 mg/dL (8.5-10.1); CREATININE 0.4 mg/dL (0.6-1.3); MAGNESIUM 1.9 mg/dL (1.8-2.4); POTASSIUM 3.9 mmol/L (3.5-5.1); TOTAL BILIRUBIN 0.5 mg/dL (<0.1-1.0); TOTAL PROTEIN 5.4 g/dL (6.4-8.2)
[2021-05-01 11:54] LABS: BE 5.7 mmol/L (-2 to +3); PCO2 44.7 mmHg (35.0-45.0); PO2 62.1 mmHg (75.0-100.0); pH 7.449 (7.340-7.450)
--- NOTE | 2021-05-01 15:00 | NUR ---
POC UPDATE: SEDATED. VENT, WITH WORSENING OXYGENATION. FI02 INCREASED TO 100% LASIX. NOT TOLERATING TB TODAY. DR CONTRERAS STATED SHE IS HAVING DAILY CONVERSATION W/DTR.
--- NOTE | 2021-05-01 17:06 | 2DMMODE ---
[place] [address] 2 D/M-MODE ECHOCARDIOGRAM Name: BRYSONMARC Andi Room: [facility] IN [facility]#: [id number] Admission: 04/02/21 Attend Phys: Anthony Whitfield Discharge: Date of : 48 Date of Service: 05/01/21 1705 Report #: [id number] THIS REPORT FOR: cc: Ximena Wills Dorothy L. RNP Liston, Michael J. MD [facility] ~ APPROVED REPORT Study performed: 05/01/2021 15:58:25 EXAM: Comprehensive 2D, Doppler, and color-flow Echocardiogram Patient Location: In-Patient Room #: 004 Status: routine BSA: 1.89 HR: 92 bpm BP: 102/52 mmHg Rhythm: NSR Other Information Study Quality: Good Indications reassess pa systolic Tricuspid Valve RAP Estimate: 5.00 mmHg TR Peak Gr.: 26.50 mmHg RVSP: 31.00 mmHg PA Pressure: 31.00 mmHg Left Ventricle The left ventricle is normal size. There is normal LV segmental wall motion. Mild concentric left ventricular hypertrophy. The left ventricular systolic function is normal. LVEF is 60-65%. Right Ventricle The right ventricle is normal size. The right ventricular systolic function is normal. Atria Left atrium is mildly dilated. Right atrium is mildly [place] [address] 2 D/M-MODE ECHOCARDIOGRAM Name: MARC MASSEY Room: [address] IN M.R.#: [id number] Admission: 04/02/21 Attend Phys: Anthony Whitfield Discharge: Date of : 48 Date of Service: 05/01/211704 Report #: [id number] The aortic valve is normal in structure. Mitral Valve The mitral valve is normal in structure. Tricuspid Valve The tricuspid valve is normal in structure. Mild tricuspid regurgitation. The RVSP is 31mmHg. Great Vessels The aortic root is normal in size. IVC is normal in size and collapses >50% with inspiration. Pericardium There is no pericardial effusion. <Conclusion> The left ventricle is normal size. Mild concentric left ventricular hypertrophy. The left ventricular systolic function is normal. LVEF is 60-65%. There is normal LV segmental wall motion. Left atrium is mildly dilated. Right atrium is mildly dilated. Mild tricuspid regurgitation. The RVSP is 31mmHg. <ELECTRONICALLY SIGNED> By: Víctor Daley MD, FACC 05/01/211704 04 1705 Víctor Daley MD, FACC /INF
[2021-05-02] VITALS (31 sets, daily range): BP systolic 96–157; BP diastolic 44–74
[2021-05-02 03:56] LABS: ABSOLUTE LYMPHOCYTES 0.2 thou/uL (0.8-5.3); ABSOLUTE MONOCYTES 0.2 thou/uL (0.0-1.2); ABSOLUTE NEUTROPHILS 4.3 thou/uL (1.6-8.1); BASOPHILS 0.1 %; EOSINOPHILS 0.1 %; HEMATOCRIT 23.5 % (37.0-47.0); HEMOGLOBIN 7.7 gm/dL (12.0-15.0); LYMPHOCYTES 4.7 %; MCHC 32.8 g/dL (28.0-37.0); MCV 97.4 fL (80.0-100.0); MONOCYTES 3.8 %; MPV 9.2 fl. (7.2-11.1); NUCLEATED RBCS 0 /100WBC; PLATELET COUNT* 57 thou/uL (150-400); POLYS 91.3 %; RBC 2.41 mil/uL (4.20-5.00); RDW-CV 23.3 % (10.5-14.5); WBC 4.7 thou/uL (4.0-11.0)
[2021-05-02 04:16] LABS: ALBUMIN 3.1 g/dL (3.4-5.0); CALCIUM 8.1 mg/dL (8.5-10.1); CREATININE 0.4 mg/dL (0.6-1.3); MAGNESIUM 2.6 mg/dL (1.8-2.4); POTASSIUM 4.4 mmol/L (3.5-5.1); TOTAL BILIRUBIN 0.4 mg/dL (<0.1-1.0); TOTAL PROTEIN 5.8 g/dL (6.4-8.2)
[2021-05-02 04:19] LABS: APTT 25.4 Seconds (25.0-31.3); PROTIME 10.9 Seconds (9.20-11.50)
[2021-05-02 04:52] LABS: PHOSPHORUS* 5.1 mg/dL (2.5-4.9)
[2021-05-02 09:02] LABS: BE 5.4 mmol/L (-2 to +3); PO2 72.3 mmHg (75.0-100.0)
[2021-05-02 09:04] LABS: PCO2 86.9 mmHg (35.0-45.0); pH 7.219 (7.340-7.450)
--- NOTE | 2021-05-02 10:47 | NUR ---
When TF able to restart: Recommend change formula to Vital AF at goal of 45 ml/hr and increase H2O flushes to 200 ml q 6 hrs. Continue TPN at 70 ml/hr until able to tolerate goal rate TF.
--- NOTE | 2021-05-02 13:44 | NUR ---
PLAN OF CARE: PHYSICIAN INFORMS THAT THE PT IS NOT MEDICALLY STABLE AT THIS TIME. PT REMAINS ICU STATUS AND ON THE VENT @ 90% FIO2. CM WILL REMAIN AVAILABLE TO ASSIST AND FOLLOW NEEDED.
[2021-05-02 13:45] LABS: ANTI-Xa-UNFRACTIONATED HEP ND; pH ND (7.340-7.450)
[2021-05-02 13:46] LABS: PCO2 ND mmHg (35.0-45.0)
[2021-05-02 13:47] LABS: PO2 ND mmHg (75.0-100.0)
[2021-05-02 13:49] LABS: BE ND mmol/L (-2 to +3)
--- NOTE | 2021-05-02 14:59 | EKG ---
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 : 1950 Requested By: Anthony Whitfield Order Number: [id number] Nir MD: Mauricio Bai Measurements Intervals [place] Rate: 48 P: NC: QRS: 36 QRSD: 89 T: 40 QT: 472 QTc: 422 Interpretive Statements Atrial fibrillation with slow response Low voltage, extremity and precordial leads Compared to ECG 04/05/2021 10:17:56 Low QRS voltage now present rate has slowed Electronically Signed On 05-02-2021 14:59:03 CDT by Mauricio Bai [email or web address] <ELECTRONICALLY SIGNED> By: Mauricio Bai MD, FACC 05/02/21 1459 1625 1625 Mauricio Bai MD, FACC /EPI
[2021-05-02 15:19] LABS: BE 9.7 mmol/L (-2 to +3); PO2 67.8 mmHg (75.0-100.0); pH 7.368 (7.340-7.450)
[2021-05-02 15:23] LABS: PCO2 64.6 mmHg (35.0-45.0)
[2021-05-03] VITALS (36 sets, daily range): BP systolic 86–143; BP diastolic 51–67
[2021-05-03 05:24] LABS: BASOPHILS 0.8 %; HEMATOCRIT 22.2 % (37.0-47.0); MCV 96.3 fL (80.0-100.0)
[2021-05-03 05:26] LABS: ABSOLUTE LYMPHOCYTES 0.2 thou/uL (0.8-5.3); ABSOLUTE MONOCYTES 0.2 thou/uL (0.0-1.2); ABSOLUTE NEUTROPHILS 3.3 thou/uL (1.6-8.1); EOSINOPHILS 0.2 %; HEMOGLOBIN 7.3 gm/dL (12.0-15.0); LYMPHOCYTES 6.6 %; MCH 31.6 pg (26.0-34.0); MCHC 32.8 g/dL (28.0-37.0); MONOCYTES 4.9 %; MPV 9.5 fl. (7.2-11.1); NUCLEATED RBCS 3 /100WBC; PLATELET COUNT* 74 thou/uL (150-400); POLYS 87.5 %; WBC 3.8 thou/uL (4.0-11.0)
[2021-05-03 05:34] LABS: CREATININE 0.3 mg/dL (0.6-1.3); MAGNESIUM 2.3 mg/dL (1.8-2.4); PHOSPHORUS* 2.6 mg/dL (2.5-4.9); POTASSIUM 3.7 mmol/L (3.5-5.1); TOTAL BILIRUBIN 0.5 mg/dL (<0.1-1.0); TOTAL PROTEIN 5.7 g/dL (6.4-8.2)
[2021-05-03 07:39] LABS: BE 11.2 mmol/L (-2 to +3); PO2 87.4 mmHg (75.0-100.0); pH 7.403 (7.340-7.450)
[2021-05-03 07:40] LABS: PCO2 61.2 mmHg (35.0-45.0)
[2021-05-03 16:41] LABS: HEMATOCRIT 21.1 % (37.0-47.0); MCH 31.6 pg (26.0-34.0); MCV 95.5 fL (80.0-100.0); MPV 8.9 fl. (7.2-11.1); NUCLEATED RBCS 2 /100WBC; PLATELET COUNT* 70 thou/uL (150-400); RBC 2.21 mil/uL (4.20-5.00); WBC 3.9 thou/uL (4.0-11.0)
[2021-05-03 16:57] LABS: CALCIUM 8.3 mg/dL (8.5-10.1); CREATININE 0.3 mg/dL (0.6-1.3); MAGNESIUM 2.4 mg/dL (1.8-2.4)
[2021-05-03 17:24] LABS: ABSOLUTE LYMPHOCYTES 0.6 thou/uL (0.8-5.3); ABSOLUTE MONOCYTES 0.2 thou/uL (0.0-1.2); ABSOLUTE NEUTROPHILS 3.1 thou/uL (1.6-8.1)
[2021-05-03 17:25] LABS: PLATELET ESTIMATE DECREASED
[2021-05-03 17:26] LABS: POLYCHROMASIA Occasional
[2021-05-03 17:27] LABS: ANISOCYTOSIS 1+; MICROCYTES Occasional
[2021-05-04] VITALS (33 sets, daily range): BP systolic 64–136; BP diastolic 37–68
[2021-05-04 06:30] LABS: ABSOLUTE LYMPHOCYTES 0.7 thou/uL (0.8-5.3); ABSOLUTE MONOCYTES 0.3 thou/uL (0.0-1.2); ABSOLUTE NEUTROPHILS 6.8 thou/uL (1.6-8.1); BASOPHILS 0.2 %; EOSINOPHILS 0.2 %; HEMATOCRIT 23.8 % (37.0-47.0); HEMOGLOBIN 7.8 gm/dL (12.0-15.0); LYMPHOCYTES 9.1 %; MCH 31.8 pg (26.0-34.0); MCHC 32.9 g/dL (28.0-37.0); MCV 96.6 fL (80.0-100.0); MONOCYTES 3.6 %; MPV 8.9 fl. (7.2-11.1); NUCLEATED RBCS 1 /100WBC; PLATELET COUNT* 97 thou/uL (150-400); POLYS 86.9 %; RBC 2.46 mil/uL (4.20-5.00); RDW-CV 23.4 % (10.5-14.5); WBC 7.8 thou/uL (4.0-11.0)
[2021-05-04 07:18] LABS: ALBUMIN 3.3 g/dL (3.4-5.0); CALCIUM 8.6 mg/dL (8.5-10.1); CREATININE 0.3 mg/dL (0.6-1.3); MAGNESIUM 2.3 mg/dL (1.8-2.4); POTASSIUM 3.9 mmol/L (3.5-5.1); TOTAL BILIRUBIN 0.5 mg/dL (<0.1-1.0)
[2021-05-04 11:20] LABS: BE 9.5 mmol/L (-2 to +3); PCO2 42.6 mmHg (35.0-45.0); PO2 62.7 mmHg (75.0-100.0); pH 7.512 (7.340-7.450)
[2021-05-04 12:30] LABS: URINE BILIRUBIN NEGATIVE (Negative); URINE BLOOD 2+ (Negative); URINE CLARITY CLEAR; URINE COLOR YELLOW; URINE GLUCOSE-RANDOM NEGATIVE (Negative); URINE KETONES NEGATIVE (Negative); URINE NITRITE-REFLEX NEGATIVE (Negative); URINE PROTEIN NEGATIVE (Negative); URINE UROBILINOGEN 0.2 E.U./dl (0.2-1.0)
[2021-05-04 12:32] LABS: URINE LEUKOCYTES-REFLEX 3+ (Negative)
[2021-05-04 12:43] LABS: CASTS None Seen /LPF (None Seen); CRYSTALS None Seen /LPF (None Seen); MUCUS 4-6 Moderate strn/LPF (None Seen); SQUAMOUS 0-3 Few /LPF (0-3); URINE RBC 3-10 Few /HPF (0-2)
[2021-05-05] VITALS (24 sets, daily range): BP systolic 84–143; BP diastolic 42–62
--- NOTE | 2021-05-05 04:14 | NUR ---
ASSUMED CARE AT 1910H, ON VENT AT 75% AND TOLERATED. ON VERSED AND FENTANYL DRIP AT MAX DOSE. PROPOFOL AT 40MICS AND TITRATED. ON HECTOR DRIP AT 50MICS AND TITRATED. WITH TACHYPNIA NOTED, PROPOFOL INCREASED AND VERSED PUSH GIVEN. TO UNPRONE PT LATER. FEEDING TOLERATED. CONTINUE MONITORING AND TOWARDS GOALS. PROPOFOL AT 50MICS AND HECTOR OFF.
[2021-05-05 04:20] LABS: ABSOLUTE LYMPHOCYTES 0.3 thou/uL (0.8-5.3); ABSOLUTE MONOCYTES 0.2 thou/uL (0.0-1.2); ABSOLUTE NEUTROPHILS 6.6 thou/uL (1.6-8.1); BASOPHILS 0.2 %; EOSINOPHILS 0.1 %; HEMATOCRIT 22.1 % (37.0-47.0); HEMOGLOBIN 7.2 gm/dL (12.0-15.0); LYMPHOCYTES 4.7 %; MCH 31.8 pg (26.0-34.0); MCHC 32.8 g/dL (28.0-37.0); MONOCYTES 2.7 %; MPV 8.9 fl. (7.2-11.1); NUCLEATED RBCS 0 /100WBC; PLATELET COUNT* 89 thou/uL (150-400); POLYS 92.3 %; RBC 2.28 mil/uL (4.20-5.00); RDW-CV 23.8 % (10.5-14.5); WBC 7.1 thou/uL (4.0-11.0)
[2021-05-05 04:45] LABS: PHOSPHORUS* 3.8 mg/dL (2.5-4.9)
[2021-05-05 04:52] LABS: ALBUMIN 3.1 g/dL (3.4-5.0); CALCIUM 8.5 mg/dL (8.5-10.1); CREATININE 0.3 mg/dL (0.6-1.3); MAGNESIUM 2.2 mg/dL (1.8-2.4); POTASSIUM 4.1 mmol/L (3.5-5.1); TOTAL BILIRUBIN 0.5 mg/dL (<0.1-1.0); TOTAL PROTEIN 5.7 g/dL (6.4-8.2)
[2021-05-05 08:29] LABS: BE 5.6 mmol/L (-2 to +3); PO2 62.6 mmHg (75.0-100.0); pH 7.387 (7.340-7.450)
[2021-05-05 08:34] LABS: PCO2 53.5 mmHg (35.0-45.0)
--- NOTE | 2021-05-05 15:06 | NUR ---
POC UPDATE: WILL NEED CULTURES , MOSHE AND CT CAP REPEATED. THE PLAN IS FOR PT TO BE TRACH AND PEG TOMORROW.
[2021-05-06] VITALS: BP 109/50
--- NOTE | 2021-05-06 04:05 | NUR ---
ASSUMED CARE AT 1900H, ON VENT AT 70% AND TOLERATED. SEEN PT PRONED AND FLIPPED BACK BEFORE MIDNIGHT. SATURATION WAS DOWN TO 87% THEN UP TO 93% SLOWLY. UPDATE GIVEN TO DTR AND HE WILL BE HERE ARROUND 10AM WITH FATHER TO SIGN CONSENT FOR TRACH AND PEG INSERTION. CHEST TUBE WITH MINIMAL OUTPUT. CONTINUE MONITORING AND TOWARDS GOALS. MAX WITH SEDATIONS AND HECTOR OFF.
[2021-05-06 05:15] LABS: MCH 31.5 pg (26.0-34.0); MCHC 32.6 g/dL (28.0-37.0); MCV 96.6 fL (80.0-100.0); NUCLEATED RBCS 1 /100WBC; PLATELET COUNT* 104 thou/uL (150-400); RBC 2.18 mil/uL (4.20-5.00); RDW-CV 22.9 % (10.5-14.5); WBC 7.9 thou/uL (4.0-11.0)
[2021-05-06 05:26] LABS: CALCIUM 8.4 mg/dL (8.5-10.1); CREATININE 0.3 mg/dL (0.6-1.3); MAGNESIUM 2.1 mg/dL (1.8-2.4); POTASSIUM 4.1 mmol/L (3.5-5.1); TOTAL BILIRUBIN 0.4 mg/dL (<0.1-1.0); TOTAL PROTEIN 5.6 g/dL (6.4-8.2)
[2021-05-06 05:52] LABS: HEMOGLOBIN 6.9 gm/dL (12.0-15.0)
[2021-05-06 06:30] LABS: ABSOLUTE LYMPHOCYTES 0.8 thou/uL (0.8-5.3); ABSOLUTE MONOCYTES 0.2 thou/uL (0.0-1.2); ATYPICAL LYMPHS 4 %; METAMYELOCYTES 2 %
[2021-05-06 06:31] LABS: ANISOCYTOSIS 2+; PLATELET ESTIMATE DECREASED
[2021-05-06 08:31] VITALS: BP 110/60; BP 110/64; BP 112/62
[2021-05-06 08:39] LABS: BE 11.3 mmol/L (-2 to +3); PO2 70.3 mmHg (75.0-100.0); pH 7.444 (7.340-7.450)
[2021-05-06 08:41] LABS: PCO2 54.6 mmHg (35.0-45.0)
--- NOTE | 2021-05-06 10:09 | NUR ---
POC UPDATE: PT SEDATED AND INTUBATED. FIO2 @ 70% CHEST TUBE IN PLACE. CM CONTACTED PT'S DTR, JAYMIE, TO PROVIDE EMOTIONAL SUPPORT. PER JAYMIE, SHE AND HER FATHER WAS ON THE WAY TO [facility] TO "SIT" WITH PT PRIOR TO SX. "WE'RE HANGING IN THERE." JAYMIE DENIES QUESTION/CONCERNS FOR CM AT THIS TIME.
--- NOTE | 2021-05-06 15:58 | NUR ---
WOUND NURSE: PATIENT SEEN TO ADDRESS MULTIPLE LESIONS ON CHEEKS, NOSE, CHIN RESULTING FROM PRONING, AND AT THE REQUEST OF NURSEJEAN CLAUDE. PRESENTS SMALL CIRCIFORM LESIONS WHICH ARE SHALLOW EROSIONS WITH RED, NONGRANULATING TISSUE AND PARTIALLY SCABBED. CLEANSED WITH SOAP AND WATER, RINSED, PATTED DRY. APPLIED MARATHON LIQUID SKIN PROTECTANT AND ALLOWED TO DRY. WILL MONITOR FOR CHANGES. LESIONS ARE UNAVOIDABLE D/T EFFECTS AND TREATMENT OF COVID.
[2021-05-06 20:00] VITALS: BP 117/56
[2021-05-06 21:00] VITALS: BP 122/59
[2021-05-06 22:00] VITALS: BP 124/58
[2021-05-06 23:00] VITALS: BP 140/66
[2021-05-07] VITALS (61 sets, daily range): BP systolic 84–144; BP diastolic 25–79
--- NOTE | 2021-05-07 04:13 | NUR ---
ASSUMED CARE AT 1900H, ON VENT AT 100% AND TITRATED. ON FENTANYL AND PROPOFOL MAX DOSE. WITH SLIGHT BLEEDING ON TRACHEOSTOMY SITE. PT HAD HYPOGYLCEMIA, PRN D50% 50ML GIVEN. PT WAS TACHYCARDIC, PRN MED GIVEN. PT TAKING SMALL BREATH AND O2 SAT DECREASING, VERSED DRIP RE-STARTED. CONTINUE MONITORING AND TOWARDS GOALS. PROPOFOL AT 20MICS. VERSED AND FENTANYL AT MAX DOSE. FIO2 AT 90%.
[2021-05-07 06:00] LABS: ABSOLUTE BASOPHILS 0.1 thou/uL (0.0-0.2); ABSOLUTE LYMPHOCYTES 0.5 thou/uL (0.8-5.3); ABSOLUTE MONOCYTES 0.4 thou/uL (0.0-1.2); BASOPHILS 0.8 %; EOSINOPHILS 0.2 %; HEMATOCRIT 25.8 % (37.0-47.0); HEMOGLOBIN 8.8 gm/dL (12.0-15.0); LYMPHOCYTES 4.6 %; MCH 32.4 pg (26.0-34.0); MCHC 34.2 g/dL (28.0-37.0); MCV 94.6 fL (80.0-100.0); MONOCYTES 3.3 %; MPV 8.6 fl. (7.2-11.1); NUCLEATED RBCS 0 /100WBC; PLATELET COUNT* 134 thou/uL (150-400); POLYS 91.1 %; RBC 2.73 mil/uL (4.20-5.00); RDW-CV 20.9 % (10.5-14.5)
[2021-05-07 06:13] LABS: ALBUMIN 2.7 g/dL (3.4-5.0); CALCIUM 8.1 mg/dL (8.5-10.1); CREATININE 0.3 mg/dL (0.6-1.3); POTASSIUM 3.8 mmol/L (3.5-5.1); TOTAL BILIRUBIN 0.5 mg/dL (<0.1-1.0); TOTAL PROTEIN 5.2 g/dL (6.4-8.2)
[2021-05-07 09:02] LABS: ANISOCYTOSIS 2+; PLATELET ESTIMATE ADEQUATE
[2021-05-07 09:07] LABS: BE 8.6 mmol/L (-2 to +3); PO2 71.2 mmHg (75.0-100.0); pH 7.439 (7.340-7.450)
[2021-05-07 09:09] LABS: PCO2 51.2 mmHg (35.0-45.0)
--- NOTE | 2021-05-07 16:40 | NUR ---
Trach/peg yesterday. Cm to contact pt's dtr to discuss LTAC choice. Stable. Wean fio2, currently at 90%
--- NOTE | 2021-05-07 21:00 | NUR ---
PT DID NOT TOLORATE WELL GOING TO IR FOR PICC PLACEMENT TODAY. STARTED TO DESTAT AFTER BED TRANSFER, BP DROPPED, THEN HR. GAVE ATROPINE FOR SB IN IR. RESTARTED BP SUPPORT. PT IN A-FLUTTER THIS AFTERNOON. TUBE FEEDS RESTARTED. ALL ASSESSMENTS COMPLETED CHARTED.
[2021-05-08] VITALS (36 sets, daily range): BP systolic 102–155; BP diastolic 52–75
[2021-05-08 05:40] LABS: HEMATOCRIT 30.9 % (37.0-47.0); HEMOGLOBIN 9.8 gm/dL (12.0-15.0); MCH 30.9 pg (26.0-34.0); MCHC 31.6 g/dL (28.0-37.0); MCV 97.6 fL (80.0-100.0); MPV 8.7 fl. (7.2-11.1); RBC 3.17 mil/uL (4.20-5.00); RDW-CV 21.1 % (10.5-14.5); WBC 22.6 thou/uL (4.0-11.0)
[2021-05-08 05:54] LABS: ALBUMIN 2.9 g/dL (3.4-5.0); CALCIUM 8.1 mg/dL (8.5-10.1); CREATININE 0.4 mg/dL (0.6-1.3); MAGNESIUM 1.9 mg/dL (1.8-2.4); TOTAL BILIRUBIN 0.5 mg/dL (<0.1-1.0); TOTAL PROTEIN 6.2 g/dL (6.4-8.2)
[2021-05-08 11:38] LABS: BE -2.4 mmol/L (-2 to +3); PO2 102.1 mmHg (75.0-100.0)
[2021-05-08 11:39] LABS: PCO2 100.4 mmHg (35.0-45.0); pH 7.085 (7.340-7.450)
--- NOTE | 2021-05-08 13:04 | NUR ---
REFERRAL PACKETS FAXED TO [facility] [phone] [facility] [phone] [facility] [phone] AWAITING MEDICALLY ACCEPTANCE TO FACILITY. CM TO CONTINUE TO FOLLOW FOR SAFE D/C PLANNING.
--- NOTE | 2021-05-08 14:35 | NUR ---
Spoke with Elsi Duncan ([facility]). Per Elsi pts FIO2 requirements need to be down to 60-70% and fentanyl & versed will need to be off prior to pt transport to facility.
--- NOTE | 2021-05-08 16:47 | NUR ---
ICU Rounds: Patient remains on vent (100% FiO2 and 7 peep). Patient on sedation, pressors and amio gtt. WBC count elevated. Patient is not stable at this time for LTAC placement. Spoke to dtr who states that she is fine to send patient to whichever LTAC facility will accept her mothers insurance. Referrals faxed to all 3 LTAC's ([facility], [facility] and [facility]). Awaiting insurance review for all 3 facilities. Please note that patient will not be able to transfer to LTAC until her FiO2 is between 60-70% which is considered stable O2 for transfer. Facilities will also not be able to submit for auth until patient is more stable. TOMAS will stay connected to each facility to determine which can submit for auth, turnaround time for auth and bed availability. Dtr aware of above information and it will be shared with Dr. MARIN to continue to follow
[2021-05-08 17:24] LABS: BE 7.1 mmol/L (-2 to +3); PO2 94.3 mmHg (75.0-100.0); pH 7.314 (7.340-7.450)
[2021-05-08 18:06] LABS: CALCIUM 8.3 mg/dL (8.5-10.1); CREATININE 0.5 mg/dL (0.6-1.3); MAGNESIUM 2.5 mg/dL (1.8-2.4)
[2021-05-09] VITALS (41 sets, daily range): BP systolic 85–178; BP diastolic 46–84
[2021-05-09 04:39] LABS: ABSOLUTE BASOPHILS 0.1 thou/uL (0.0-0.2); ABSOLUTE LYMPHOCYTES 0.4 thou/uL (0.8-5.3); ABSOLUTE MONOCYTES 0.4 thou/uL (0.0-1.2); ABSOLUTE NEUTROPHILS 9.9 thou/uL (1.6-8.1); BASOPHILS 0.9 %; EOSINOPHILS 0.1 %; HEMATOCRIT 21.2 % (37.0-47.0); LYMPHOCYTES 4.1 %; MCH 32.5 pg (26.0-34.0); MCHC 33.5 g/dL (28.0-37.0); MCV 96.9 fL (80.0-100.0); MONOCYTES 3.9 %; NUCLEATED RBCS 0 /100WBC; RBC 2.19 mil/uL (4.20-5.00); RDW-CV 20.6 % (10.5-14.5); WBC 10.9 thou/uL (4.0-11.0)
[2021-05-09 04:49] LABS: HEMOGLOBIN 7.1 gm/dL (12.0-15.0); PLATELET COUNT* 136 thou/uL (150-400)
[2021-05-09 04:56] LABS: PHOSPHORUS* 3.1 mg/dL (2.5-4.9)
[2021-05-09 04:59] LABS: ALBUMIN 3.2 g/dL (3.4-5.0); CALCIUM 8.3 mg/dL (8.5-10.1); CREATININE 0.3 mg/dL (0.6-1.3); MAGNESIUM 2.1 mg/dL (1.8-2.4); POTASSIUM 3.8 mmol/L (3.5-5.1); TOTAL BILIRUBIN 0.5 mg/dL (<0.1-1.0); TOTAL PROTEIN 5.6 g/dL (6.4-8.2)
[2021-05-09 08:08] LABS: BE 10.4 mmol/L (-2 to +3); PO2 106.1 mmHg (75.0-100.0)
[2021-05-09 08:09] LABS: PCO2 55.4 mmHg (35.0-45.0)
[2021-05-09 08:17] LABS: ABSOLUTE BASOPHILS 0.1 thou/uL (0.0-0.2); ABSOLUTE LYMPHOCYTES 0.7 thou/uL (0.8-5.3); ABSOLUTE MONOCYTES 0.3 thou/uL (0.0-1.2); ABSOLUTE NEUTROPHILS 10.9 thou/uL (1.6-8.1); BASOPHILS 0.5 %; EOSINOPHILS 0.1 %; HEMATOCRIT 21.7 % (37.0-47.0); HEMOGLOBIN 7.1 gm/dL (12.0-15.0); LYMPHOCYTES 5.7 %; MCH 31.6 pg (26.0-34.0); MCHC 32.9 g/dL (28.0-37.0); MCV 96.3 fL (80.0-100.0); MONOCYTES 2.8 %; MPV 8.5 fl. (7.2-11.1); NUCLEATED RBCS 0 /100WBC; PLATELET COUNT* 147 thou/uL (150-400); POLYS 90.9 %; RBC 2.25 mil/uL (4.20-5.00); RDW-CV 20.3 % (10.5-14.5)
--- NOTE | 2021-05-09 10:10 | NUR ---
ICU Rounds: Patient remains on the vent (90% FiO2/7 peep). Continued sedation, steroids, abx and TF. POD #3 with trach/peg. R chest tube in place. Referral packet faxed to all 3 LTACs yesterday. Each facility is verifying benefits at this time and will follow up with CM to determine when auth can be obtained and discuss bed availablity. FiO2 too high to submit for auth at this time. Family updated on plan of care. Patient to stay through the weekend. CM to continue to follow
--- NOTE | 2021-05-09 12:38 | NUR ---
1100: Dr. Hernandez rounding, verbal order to decrease versed to 5mg/hr and fentanyl to 75mcg/hr. Started precedex. 1240: Pt becoming bradycardic again. Spoke with Dr. Hernandez, per verbal order stop amiodarone and versed. Will restart versed if RR increases. Will continue to assess for ability to further titrate drips.
--- NOTE | 2021-05-09 12:44 | NUR ---
No change in assessment performed on 05/09/21 at 0800. Will continue to monitor for changes.
[2021-05-09 15:38] LABS: ABSOLUTE LYMPHOCYTES 0.9 thou/uL (0.8-5.3); ABSOLUTE MONOCYTES 0.4 thou/uL (0.0-1.2); ABSOLUTE NEUTROPHILS 16.5 thou/uL (1.6-8.1); BASOPHILS 0.1 %; HEMATOCRIT 24.1 % (37.0-47.0); HEMOGLOBIN 7.9 gm/dL (12.0-15.0); LYMPHOCYTES 5.1 %; MCH 31.3 pg (26.0-34.0); MCHC 32.6 g/dL (28.0-37.0); MCV 96.1 fL (80.0-100.0); MONOCYTES 2.5 %; MPV 8.4 fl. (7.2-11.1); NUCLEATED RBCS 0 /100WBC; PLATELET COUNT* 220 thou/uL (150-400); POLYS 92.3 %; RBC 2.51 mil/uL (4.20-5.00); RDW-CV 20.1 % (10.5-14.5); WBC 17.8 thou/uL (4.0-11.0)
[2021-05-09 15:46] LABS: CALCIUM 8.6 mg/dL (8.5-10.1); CREATININE 0.4 mg/dL (0.6-1.3); POTASSIUM 4.1 mmol/L (3.5-5.1)
[2021-05-09 16:37] LABS: BE 13.5 mmol/L (-2 to +3)
[2021-05-09 16:40] LABS: PCO2 59.5 mmHg (35.0-45.0)
--- NOTE | 2021-05-09 17:30 | NUR ---
1600 ASSESSMENT PERFORMED, NO CHANGES FROM PREVIOUSLY CHARTED ASSESSMENT. WILL CONTINUE TO MONITOR.
[2021-05-10] VITALS (30 sets, daily range): BP systolic 79–197; BP diastolic 47–96
[2021-05-10 06:38] LABS: HEMATOCRIT 27.1 % (37.0-47.0); HEMOGLOBIN 8.8 gm/dL (12.0-15.0); MCH 31.6 pg (26.0-34.0); MCHC 32.5 g/dL (28.0-37.0); MCV 97.1 fL (80.0-100.0); MPV 8.7 fl. (7.2-11.1); NUCLEATED RBCS 0 /100WBC; PLATELET COUNT* 233 thou/uL (150-400); RBC 2.79 mil/uL (4.20-5.00); RDW-CV 20.5 % (10.5-14.5); WBC 18.3 thou/uL (4.0-11.0)
[2021-05-10 06:52] LABS: ALBUMIN 3.2 g/dL (3.4-5.0); CALCIUM 9.2 mg/dL (8.5-10.1); CREATININE 0.4 mg/dL (0.6-1.3); MAGNESIUM 2.2 mg/dL (1.8-2.4); TOTAL BILIRUBIN 0.4 mg/dL (<0.1-1.0); TOTAL PROTEIN 6.3 g/dL (6.4-8.2)
[2021-05-10 06:54] LABS: POTASSIUM 4.4 mmol/L (3.5-5.1)
[2021-05-10 07:24] LABS: ABSOLUTE LYMPHOCYTES 0.4 thou/uL (0.8-5.3); ABSOLUTE MONOCYTES 0.4 thou/uL (0.0-1.2); ABSOLUTE NEUTROPHILS 17.6 thou/uL (1.6-8.1); METAMYELOCYTES 1 %
[2021-05-10 07:26] LABS: ANISOCYTOSIS 2+; PLATELET ESTIMATE ADEQUATE; POLYCHROMASIA 1+
[2021-05-10 07:27] LABS: HYPOCHROMASIA 1+
[2021-05-10 07:28] LABS: MACROCYTES 1+
[2021-05-10 07:55] LABS: BE 11.6 mmol/L (-2 to +3); PCO2 43.3 mmHg (35.0-45.0)
[2021-05-10 15:54] LABS: URINE BILIRUBIN NEGATIVE (Negative); URINE BLOOD TRACE (Negative); URINE COLOR YELLOW; URINE GLUCOSE-RANDOM NEGATIVE (Negative); URINE KETONES TRACE (Negative); URINE LEUKOCYTES-REFLEX TRACE (Negative); URINE NITRITE-REFLEX NEGATIVE (Negative); URINE PROTEIN TRACE (Negative); URINE SPECIFIC GRAVITY 1.015 (1.005-1.030)
[2021-05-10 15:56] LABS: URINE CLARITY HAZY
[2021-05-10 15:57] LABS: BACTERIA-REFLEX None Seen /HPF (None Seen); CASTS None Seen /LPF (None Seen); CRYSTALS None Seen /LPF (None Seen); SQUAMOUS 0-3 Few /LPF (0-3); URINE RBC 0-2 Rare /HPF (0-2); URINE WBC-REFLEX 0-5 Rare /HPF (0-5)
[2021-05-10 15:58] LABS: YEAST-REFLEX Present (None Seen)
[2021-05-11] VITALS (41 sets, daily range): BP systolic 64–174; BP diastolic 37–73
[2021-05-11 05:52] LABS: ABSOLUTE MONOCYTES 0.4 thou/uL (0.0-1.2); ABSOLUTE NEUTROPHILS 15.6 thou/uL (1.6-8.1); BASOPHILS 0.2 %; HEMATOCRIT 25.6 % (37.0-47.0); HEMOGLOBIN 8.2 gm/dL (12.0-15.0); LYMPHOCYTES 6.1 %; MCH 31.3 pg (26.0-34.0); MCHC 32.2 g/dL (28.0-37.0); MCV 97.2 fL (80.0-100.0); MONOCYTES 2.3 %; MPV 8.2 fl. (7.2-11.1); NUCLEATED RBCS 0 /100WBC; PLATELET COUNT* 241 thou/uL (150-400); POLYS 91.4 %; RBC 2.63 mil/uL (4.20-5.00); RDW-CV 20.7 % (10.5-14.5)
[2021-05-11 06:07] LABS: ALBUMIN 2.6 g/dL (3.4-5.0); CALCIUM 8.4 mg/dL (8.5-10.1); CREATININE 0.4 mg/dL (0.6-1.3); PHOSPHORUS* 2.4 mg/dL (2.5-4.9); POTASSIUM 4.3 mmol/L (3.5-5.1); TOTAL BILIRUBIN 0.5 mg/dL (<0.1-1.0); TOTAL PROTEIN 5.5 g/dL (6.4-8.2)
--- NOTE | 2021-05-11 15:01 | NUR ---
0845 PT HAD DROP IN BLOOD PRESSURE, SEE VS FOR RESULTS. DR RAINES NOTIFIED AND NEW ORDERS RECIEVED, 0908, PT HASD DECREASE IN HR TO 30'S AND DR RAINES NOTIFIED, NEW ORDERS RECIEVED.
[2021-05-12] VITALS (52 sets, daily range): BP systolic 78–178; BP diastolic 39–87
[2021-05-12 04:54] LABS: ABSOLUTE BASOPHILS 0.1 thou/uL (0.0-0.2); ABSOLUTE LYMPHOCYTES 1.2 thou/uL (0.8-5.3); ABSOLUTE MONOCYTES 0.5 thou/uL (0.0-1.2); ABSOLUTE NEUTROPHILS 14.8 thou/uL (1.6-8.1); BASOPHILS 0.6 %; EOSINOPHILS 0.1 %; HEMATOCRIT 23.8 % (37.0-47.0); HEMOGLOBIN 7.7 gm/dL (12.0-15.0); LYMPHOCYTES 7.2 %; MCH 31.7 pg (26.0-34.0); MCHC 32.5 g/dL (28.0-37.0); MCV 97.4 fL (80.0-100.0); MONOCYTES 2.8 %; MPV 8.6 fl. (7.2-11.1); NUCLEATED RBCS 0 /100WBC; PLATELET COUNT* 255 thou/uL (150-400); POLYS 89.3 %; RBC 2.45 mil/uL (4.20-5.00); RDW-CV 21.2 % (10.5-14.5); WBC 16.5 thou/uL (4.0-11.0)
[2021-05-12 05:10] LABS: ALBUMIN 2.3 g/dL (3.4-5.0); CALCIUM 8.6 mg/dL (8.5-10.1); CREATININE 0.4 mg/dL (0.6-1.3); PHOSPHORUS* 2.8 mg/dL (2.5-4.9); POTASSIUM 4.2 mmol/L (3.5-5.1); TOTAL BILIRUBIN 0.5 mg/dL (<0.1-1.0); TOTAL PROTEIN 5.3 g/dL (6.4-8.2)
[2021-05-12 11:23] LABS: BE 10.5 mmol/L (-2 to +3); PO2 65.6 mmHg (75.0-100.0); pH 7.441 (7.340-7.450)
[2021-05-12 11:25] LABS: PCO2 54.3 mmHg (35.0-45.0)
--- NOTE | 2021-05-12 13:23 | NUR ---
ICU Rounds: Patient remains on vent (100% FiO2 and Peep 10). Continued precedex and fent. Chest tube remains in place. TF running. LTAC planned for dc disposition. TOMAS [address] spoke to all 3 facilities today and below is the update; [facility]: Accepts patients insurance. Follows a 21 vent and 7 day post trach rule before submitting for auth. Once auth is submitted it can take 4-5 bus days before an approval can be obtained. Current gtts are accepted. No open beds at this time. Current FiO2 is too high at this time and patient is considered unstable for transport, per Aicha at [facility]. Updated clinicals sent today. [facility]: Family's preference due to location/proximity of dtrs house to facility (Dtr understands that she may not get her top choice depending on the circumstances). Patient's insurance is accepted. Per Lula at [facility], case has been sent to [employer] for review (standard process for review). [facility] DOES NOT accept Gtts so patient would have to be off all gtts before accepted medically by facility and before auth can be obtained. Once auth is submitted it can take 1-5 bus days before an approval is recieved. FiO2 is too high at this time and patient is considered unstable for transfer. FiO2 and peep, per Lula must be 60% or less and 10 or less. [facility] will have open beds later this week. Updated clinicls sent today. [facility]: Patient insurance is accepted. Elsi from [facility] stated that patient is very appropriate for LTAC, however patient cannot be on fent. All other Gtts are fine except fent. IV push fent is accepted but not in the Gtt form. Per Elsi, they have a shortage on this drug in their health system. Per Elsi, there is NO 21 day vent and 7 day post trach rule. Once they submit for auth it can take 24-48hrs for an approval. Currently FiO2 is too high for transport and will need to be 60-65%. Updated clinicals sent today. Family updated on plan of care and dtr is agreeable to go to whichever facility can accept the patient and obtain auth the fastest. updated on above information. Per the information above, [facility] and [facility] may be the best option at this time for LTAC. CM to continue to follow
--- NOTE | 2021-05-12 14:20 | NUR ---
1200- Reassessment unchanged from assessment completed and charted 05/12/21 0800.
--- NOTE | 2021-05-12 16:20 | NUR ---
1600- REASSESSMENT PERFORMED, NO CHANGE FROM PREVIOUS ASSESSMENT. WILL CONTINUE TO MONITOR.
--- NOTE | 2021-05-12 16:34 | NUR ---
WOUND NURSE: PATIENT SEEN FOR FOLLOW UP ASSESSMENT OF FACIAL LESIONS RESULTING FROM PRONING. ALL LESIONS IMPROVED SINCE SEEN LAST WEEK. APPLIED A 2ND DOSE OF TOPICAL MARATHON TO EACH ONE. WILL FLORECITA TO MONITOR.
[2021-05-12 17:43] LABS: CALCIUM 8.4 mg/dL (8.5-10.1); CREATININE 0.3 mg/dL (0.6-1.3); POTASSIUM 3.9 mmol/L (3.5-5.1)
[2021-05-12 17:52] LABS: BE 10.6 mmol/L (-2 to +3); PO2 102.5 mmHg (75.0-100.0); pH 7.414 (7.340-7.450)
[2021-05-12 17:58] LABS: PCO2 58.7 mmHg (35.0-45.0)
[2021-05-13] VITALS (34 sets, daily range): BP systolic 90–173; BP diastolic 50–72
--- NOTE | 2021-05-13 01:34 | NUR ---
0000 NO CHANGE FROM 05/12 @1999 ASSESSMENT
[2021-05-13 04:35] LABS: HEMATOCRIT 23.9 % (37.0-47.0); HEMOGLOBIN 7.6 gm/dL (12.0-15.0); MCH 31.5 pg (26.0-34.0); MCHC 31.8 g/dL (28.0-37.0); MCV 99.2 fL (80.0-100.0); MPV 8.4 fl. (7.2-11.1); NUCLEATED RBCS 1 /100WBC; PLATELET COUNT* 277 thou/uL (150-400); RBC 2.41 mil/uL (4.20-5.00); RDW-CV 21.7 % (10.5-14.5); WBC 18.8 thou/uL (4.0-11.0)
[2021-05-13 05:03] LABS: CALCIUM 8.6 mg/dL (8.5-10.1); CREATININE 0.4 mg/dL (0.6-1.3); MAGNESIUM 2.1 mg/dL (1.8-2.4); POTASSIUM 3.9 mmol/L (3.5-5.1); TOTAL BILIRUBIN 0.5 mg/dL (<0.1-1.0); TOTAL PROTEIN 5.8 g/dL (6.4-8.2)
--- NOTE | 2021-05-13 05:38 | NUR ---
0400 NO CHANGE FROM ASSESSMENT AT 05/12 @ 2000
[2021-05-13 06:40] LABS: ABSOLUTE LYMPHOCYTES 2.3 thou/uL (0.8-5.3); ABSOLUTE MONOCYTES 0.2 thou/uL (0.0-1.2); ABSOLUTE NEUTROPHILS 16.4 thou/uL (1.6-8.1); ANISOCYTOSIS 1+; PLATELET ESTIMATE ADEQUATE; POIKILOCYTOSIS 1+; POLYCHROMASIA 1+
[2021-05-13 08:20] LABS: BE 8.1 mmol/L (-2 to +3); PO2 108.6 mmHg (75.0-100.0); pH 7.406 (7.340-7.450)
--- NOTE | 2021-05-13 08:20 | NUR ---
REFAXED UPDATED CLINICALS TO [facility] AWAITING MEDICALLY APPROVAL FROM FACILITY. CM TO CONTINUE TO FOLLOW FOR SAFE D/C PLANNING.
[2021-05-13 08:21] LABS: PCO2 55.2 mmHg (35.0-45.0)
--- NOTE | 2021-05-13 09:04 | OP ---
[facility] [address] [place] [address] OPERATIVE REPORT Name: BRYSONMARC Andi Room: [address] IN M.R.#: [id number] Admission: 04/02/21 Attend Phys: Andi Engle Discharge: Date of : 48 Report #: [id number] THIS REPORT FOR: cc: Ximena Wills Dorothy L. RNP Gazzetta, Joshua D. DO ~ DATE OF SURGERY: 05/06/2021 SURGEON: Mehul Byrne DO ASSISTANTS: 1. Dr. Garrett Gray. 2. Dr. Alfredo Dennis, PGY-1. OPERATIONS PERFORMED: 1. Tracheostomy. 2. Percutaneous endoscopic gastrostomy tube placement. INDICATION: The patient is a 71-year-old female, who has been in the intensive care unit for several weeks secondary to COVID pneumonitis and complications. She has been unable to be liberated from the ventilator secondary to oxygen requirements. Tracheostomy is indicated. Discussed the risks, benefits and alternatives to the tracheostomy and the PEG tube with the patient's and daughter. Risks include bleeding, infection and damage to nearby structures including the esophagus, large intestine and small intestine. Additional risks include DVT, CVA, PE and . The patient's family voiced complete understanding and elected to proceed with surgery. OPERATIVE DESCRIPTION: The patient was taken to the operating theater and placed in the supine position. Bilateral SCDs had been placed and preoperative antibiotics had been given. General anesthesia was induced without complication. The patient was placed on a shoulder roll with the neck extended. The patient's neck was prepped and draped in a standard sterile fashion. A timeout was performed and all were in agreement. We began by making a 3 cm horizontal incision approximately 2 fingerbreadths above the sternal notch. Dissection was carried through the subcutaneous fat and platysma using electrocautery. Next, dissection was continued until the strap muscles were encountered. The midline raphe were opened with electrocautery and the muscle belly . These muscles were retracted laterally. This exposed the pretracheal fascia, which was dissected with a hemostat and bluntly with a Ray-Mali, exposing the cricoid cartilage and tracheal rings. Next, we did an intraoperative timeout. A cricoid hook was used to retract the cricoid ring cephalad, bringing the tracheal rings into the surgical field. Next, the anesthesiologist deflated the endotracheal balloon and 11 blade was used to incise the trachea at the third tracheal cartilage. This incision was for one-third of the trachea. Next, a tracheal dependency director was used and an [address] [place] [address] OPERATIVE REPORT Name: MARC MASSEY Room: [address] IN ..#: [id number] Admission: 04/02/21 Attend Phys: Andi Engle Discharge: Date of : 48 Report #: [id number] XLT cuffed nonfenestrated tracheostomy was placed within the trachea under direct visualization after the endotracheal tube had been pulled back. Cuff was insufflated and the ventilation tubing was attached. End tidal CO2 was appreciated, chest rise and fall, and the trach flange was sutured to the patient's neck in 4 places. Trach strap was also used. This concluded the first part of the procedure. Next, the abdomen was prepped and draped in a standard sterile fashion. An upper endoscope was passed through the mouth, through the esophagus and into the stomach. The stomach was completely insufflated, providing good apposition of the stomach to the anterior abdominal wall. Externally, the abdomen was palpated. Good 1:1 motion was appreciated. In the greater curvature of the stomach, there was a good light reflex. Next, the needle and catheter were inserted approximately 2 fingerbreadths below the costal margin in the midclavicular line. The needle was inserted into the stomach under direct visualization. On first attempt to this, the needle could be seen just adjacent to the stomach. This was slightly retracted and then redirected directly into the stomach. Wire was passed through the catheter and grasped with the endoscope and pulled through the mouth. The gastrostomy tube was connected to the wire, which was then pulled from the abdominal side back through the mouth, esophagus and up to the stomach wall. The endoscope was readvanced to visualize the gastrostomy tube, which was against the stomach, abdominal wall and could be spun. The gastrostomy tube was marked 3cm at the skin. The external bumper was placed. The gastrostomy tube was cut and assembled. This was also sutured into place in 3 spots on to the anterior abdominal wall. This concluded the procedure. All sponge, needle and instrument counts were correct x 2. COMPLICATIONS: None. FINDINGS: Ulcer in the stomach. ESTIMATED BLOOD LOSS: 10 mL. ANESTHESIA: General endotracheal anesthesia. IMPLANTS: 24-Welsh gastrostomy tube and 8 Shiley XLT cuffed nonfenestrated tracheostomy tube. DISPOSITION: The patient was taken back to the intensive care unit in critical condition. <ELECTRONICALLY SIGNED> By: Mehul Byrne DO 05/13/21 0904 0731 [id number] Byrne DO /donis
[2021-05-13 12:03] LABS: CREATININE 0.3 mg/dL (0.6-1.3); POTASSIUM 3.6 mmol/L (3.5-5.1)
--- NOTE | 2021-05-13 12:20 | NUR ---
Remains on vent. Plan to diurese to get o2 sats down. Plan LTAC
--- NOTE | 2021-05-13 13:16 | NUR ---
1200- Reassessment performed, no changes from assessment done at 0800.
--- NOTE | 2021-05-13 13:44 | NUR ---
Spoke with dtr and updated on current LTAC status. Per dtr, she is now more in [facility]. She stated that she has a friend that was recently at [facility] and had a bad experience. Advised her that [facility] are the better options at this time simply due to the fact that [facility] is not accepting patients on [facility]. CM Dir spoke to both [facility] today and both do not feel patient is medically stable enough to submit for auth at this time. Once FiO2 is btw 60-70% auth can be obtained for either facility. Dtr understands the above information as does the doctor/nurse. CM to continue to follow
--- NOTE | 2021-05-13 17:27 | NUR ---
1600- Reassessment completed, no changes from previous assessment. Will continue to monitor.
[2021-05-14] VITALS (12 sets, daily range): BP systolic 90–125; BP diastolic 45–60
[2021-05-14 05:16] LABS: ABSOLUTE LYMPHOCYTES 0.9 thou/uL (0.8-5.3); ABSOLUTE MONOCYTES 0.5 thou/uL (0.0-1.2); ABSOLUTE NEUTROPHILS 16.4 thou/uL (1.6-8.1); BASOPHILS 0.2 %; EOSINOPHILS 0.1 %; HEMATOCRIT 22.5 % (37.0-47.0); HEMOGLOBIN 7.3 gm/dL (12.0-15.0); MCH 32.7 pg (26.0-34.0); MCHC 32.5 g/dL (28.0-37.0); MCV 100.4 fL (80.0-100.0); MONOCYTES 2.8 %; MPV 8.4 fl. (7.2-11.1); NUCLEATED RBCS 0 /100WBC; PLATELET COUNT* 282 thou/uL (150-400); POLYS 91.9 %; RBC 2.24 mil/uL (4.20-5.00); RDW-CV 21.3 % (10.5-14.5); WBC 17.8 thou/uL (4.0-11.0)
[2021-05-14 05:29] LABS: ALBUMIN 3.5 g/dL (3.4-5.0); CALCIUM 8.8 mg/dL (8.5-10.1); CREATININE 0.3 mg/dL (0.6-1.3); MAGNESIUM 2.1 mg/dL (1.8-2.4); TOTAL BILIRUBIN 0.5 mg/dL (<0.1-1.0); TOTAL PROTEIN 6.3 g/dL (6.4-8.2)
[2021-05-14 05:36] LABS: POTASSIUM 4.9 mmol/L (3.5-5.1)
[2021-05-14 09:56] LABS: BE 8.2 mmol/L (-2 to +3); pH 7.351 (7.340-7.450)
[2021-05-14 09:59] LABS: PCO2 64.3 mmHg (35.0-45.0); PO2 59.3 mmHg (75.0-100.0)
--- NOTE | 2021-05-14 13:41 | NUR ---
1200- Reassessment completed, no changes from assessment performed at 0800.
--- NOTE | 2021-05-14 15:26 | NUR ---
Vented and sedated. Wean fio2. Ltac planned
--- NOTE | 2021-05-14 16:47 | NUR ---
1600- Reassessment performed. No changes from previous assessment.
[2021-05-14 17:23] LABS: CALCIUM 8.8 mg/dL (8.5-10.1); CREATININE 0.3 mg/dL (0.6-1.3); MAGNESIUM 2.1 mg/dL (1.8-2.4); POTASSIUM 4.1 mmol/L (3.5-5.1)
[2021-05-15] VITALS (56 sets, daily range): BP systolic 85–129; BP diastolic 35–64
[2021-05-15 05:28] LABS: ABSOLUTE LYMPHOCYTES 1.4 thou/uL (0.8-5.3); ABSOLUTE MONOCYTES 0.6 thou/uL (0.0-1.2); ABSOLUTE NEUTROPHILS 16.2 thou/uL (1.6-8.1); BASOPHILS 0.2 %; HEMATOCRIT 23.1 % (37.0-47.0); HEMOGLOBIN 7.4 gm/dL (12.0-15.0); LYMPHOCYTES 7.9 %; MCH 31.9 pg (26.0-34.0); MCV 99.6 fL (80.0-100.0); MONOCYTES 3.1 %; MPV 8.5 fl. (7.2-11.1); NUCLEATED RBCS 0 /100WBC; PLATELET COUNT* 278 thou/uL (150-400); POLYS 88.8 %; RBC 2.32 mil/uL (4.20-5.00); RDW-CV 21.7 % (10.5-14.5); WBC 18.2 thou/uL (4.0-11.0)
[2021-05-15 06:25] LABS: ALBUMIN 3.1 g/dL (3.4-5.0); CALCIUM 8.5 mg/dL (8.5-10.1); CREATININE 0.4 mg/dL (0.6-1.3); MAGNESIUM 2.1 mg/dL (1.8-2.4); POTASSIUM 4.1 mmol/L (3.5-5.1); TOTAL BILIRUBIN 0.5 mg/dL (<0.1-1.0)
[2021-05-15 08:04] LABS: BE 9.6 mmol/L (-2 to +3); pH 7.364 (7.340-7.450)
[2021-05-15 08:06] LABS: PCO2 65.9 mmHg (35.0-45.0)
[2021-05-15 08:07] LABS: PO2 54.2 mmHg (75.0-100.0)
--- NOTE | 2021-05-15 10:15 | NUR ---
ICU Rounds: Patient remains on vent (FiO2 80% and peep 10). Continued sedation and TF. [facility] ([facility]) still following patient for acceptance once FiO2 is more stable. Family and doctor/nurse aware. CM to continue to follow
--- NOTE | 2021-05-15 18:21 | NUR ---
PT HAD TUBE FEEDING LEAKING AROUND PEG TUBE INSERTION SITE. GI CONSULTED. STARTED ERYTHROMYCIN Q6 HR. SUPPOSITORY GIVEN PER DR CONTRERAS. RESTART TUBE FEEDS 1 HR AFTER ERYTHROMYCIN ADMINISTRATION PER DR FRIEDMAN. ASSESSMENT CHANGES CHARTED FOR REASSEMENTS ONLY.
[2021-05-15 22:58] LABS: ABSOLUTE BASOPHILS 0.2 thou/uL (0.0-0.2); ABSOLUTE EOSINOPHILS 0.1 thou/uL (0.0-0.7); ABSOLUTE LYMPHOCYTES 2.8 thou/uL (0.8-5.3); ABSOLUTE MONOCYTES 0.6 thou/uL (0.0-1.2); ABSOLUTE NEUTROPHILS 18.5 thou/uL (1.6-8.1); BASOPHILS 0.8 %; EOSINOPHILS 0.4 %; HEMATOCRIT 22.4 % (37.0-47.0); HEMOGLOBIN 7.3 gm/dL (12.0-15.0); LYMPHOCYTES 12.5 %; MCH 32.4 pg (26.0-34.0); MCHC 32.4 g/dL (28.0-37.0); MCV 99.7 fL (80.0-100.0); MONOCYTES 2.6 %; MPV 8.1 fl. (7.2-11.1); NUCLEATED RBCS 0 /100WBC; PLATELET COUNT* 254 thou/uL (150-400); POLYS 83.7 %; RBC 2.25 mil/uL (4.20-5.00); RDW-CV 21.4 % (10.5-14.5); WBC 22.1 thou/uL (4.0-11.0)
[2021-05-15 23:08] LABS: CALCIUM 7.6 mg/dL (8.5-10.1); CREATININE 0.4 mg/dL (0.6-1.3); POTASSIUM 3.4 mmol/L (3.5-5.1)
[2021-05-15 23:12] LABS: ALBUMIN 2.8 g/dL (3.4-5.0); TOTAL BILIRUBIN 0.9 mg/dL (<0.1-1.0); TOTAL PROTEIN 4.9 g/dL (6.4-8.2)
[2021-05-16] VITALS (17 sets, daily range): BP systolic 66–129; BP diastolic 39–63
[2021-05-16 00:17] LABS: BE 5.4 mmol/L (-2 to +3); PCO2 47.7 mmHg (35.0-45.0); pH 7.424 (7.340-7.450)
[2021-05-16 00:19] LABS: PO2 33.9 mmHg (75.0-100.0)
[2021-05-16 05:55] LABS: ABSOLUTE BASOPHILS 0.1 thou/uL (0.0-0.2); ABSOLUTE EOSINOPHILS 0.1 thou/uL (0.0-0.7); ABSOLUTE LYMPHOCYTES 1.9 thou/uL (0.8-5.3); ABSOLUTE MONOCYTES 0.8 thou/uL (0.0-1.2); ABSOLUTE NEUTROPHILS 26.6 thou/uL (1.6-8.1); BASOPHILS 0.4 %; EOSINOPHILS 0.2 %; HEMATOCRIT 24.6 % (37.0-47.0); HEMOGLOBIN 7.7 gm/dL (12.0-15.0); LYMPHOCYTES 6.6 %; MCH 31.8 pg (26.0-34.0); MCHC 31.2 g/dL (28.0-37.0); MCV 101.9 fL (80.0-100.0); MONOCYTES 2.7 %; MPV 8.1 fl. (7.2-11.1); NUCLEATED RBCS 0 /100WBC; PLATELET COUNT* 303 thou/uL (150-400); POLYS 90.1 %; RBC 2.42 mil/uL (4.20-5.00); RDW-CV 22.3 % (10.5-14.5); WBC 29.5 thou/uL (4.0-11.0)
[2021-05-16 06:20] LABS: ALBUMIN 2.9 g/dL (3.4-5.0); CALCIUM 7.8 mg/dL (8.5-10.1); CREATININE 0.4 mg/dL (0.6-1.3); MAGNESIUM 2.2 mg/dL (1.8-2.4); TOTAL BILIRUBIN 0.5 mg/dL (<0.1-1.0); TOTAL PROTEIN 5.7 g/dL (6.4-8.2)
[2021-05-16 06:21] LABS: POTASSIUM 5.2 mmol/L (3.5-5.1)
[2021-05-16 07:24] LABS: BE 1.7 mmol/L (-2 to +3); pH 7.328 (7.340-7.450)
[2021-05-16 07:27] LABS: PO2 130.2 mmHg (75.0-100.0)
--- NOTE | 2021-05-16 08:09 | NUR ---
APPROX 2200 PT O2 SAT AND BLOOD PRESSURE DECLINED. HECTOR WAS INCRESED TO 200 MCG/MIN WITH NO IMPROVEMNT. CARDIOLOGY CALLED RECIVED ORDERED TO START DOPAMIN 5MCG/KG. DOPAMIN MAXED AT 20MCG/KG WITH NO IMPROVEMENT. NS STARTED WIDE OPEN TO HELP INCREASE BLOOD PRESSURE. O2 SATURATION CONTUNINED TO DECLINE AN ABG WAS OBTAINED WITH CRITCAL RESULTS. PULM CONTACTED AND ORDERS RECIEVED. XRAY WAS OBTAINED AND LEVO WAS STARTED. INC HECTOR TO 300 MCG/MIN PER PROVIDERS ORDERS AND DECREASE IN DOPAMIN. PRESSURE OF A MAP GREATER THAN 60 WAS OBTAINED. TITRATED DOPAMIN OFF AND LEVO OFF. PROVIDER ORDER 2 DOSES OF VEC TO BE GIVEN FOR INCREASE RESPIRATION. VEC WAS GIVEN AND RESPERATION DECREASE ND O2 SATURATION INCREASED. PROVIDER ORDER NIMBEX DRIP TO BE STARTED. END OF SHIT O2 SATURATION GREATER THAN 90%, MAP GREATER THAN 60 AND HR WNL. HECTOR AT END OF SHIFT AT 300. REPORT GIVEN TO ONCOMING NURSE.
--- NOTE | 2021-05-16 09:03 | NUR ---
ICU Rounds: Patient's condition worsened overnight per nursing. Patient remains on vent (FiO2 100% and peep 10). Continued dilaudid, precedex, versed and TF. Dopamine and nimbex have been added. Patient remains full code at this time. Patient to remain through the weekend. CM available for assistance. CM to continue to follow
--- NOTE | 2021-05-16 09:56 | EKG ---
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 : 1950 Requested By: Mauricio Bai Order Number: [id number] Reading MD: Mauricio Bai Measurements Intervals [place] Rate: 134 P: NE: QRS: 19 QRSD: 78 T: 206 QT: 269 QTc: 402 Interpretive Statements Atrial fibrillation Ventricular premature complex Borderline low voltage, extremity leads Repol abnrm suggests ischemia, diffuse leads Compared to ECG 04/28/2021 11:25:35 Possible ischemia now present Q waves no longer present Myocardial infarct finding no longer present Electronically Signed On 05-16-2021 9:55:55 CDT by Mauricio Bai [email or web address] <ELECTRONICALLY SIGNED> By: Mauricio Bai MD, FACC 05/16/21 0955 38 38 Mauricio Bai MD, FACC /EPI
--- NOTE | 2021-05-16 11:00 | NUR ---
AT 1015 THIS AM PATIENT'S BP STARTED TO DECREASE. PATIENT WAS ALREADY MAXED OUT ON HECTOR. BP 60'S/40'S, LEVO STARTED AND ENDED UP MAXED WITH BP STILL 70'S/40'S, DOPAMINE STARTED AND MAXED. DR CONTRERAS LNOTIFIED AND ORDERS RECIEVED FOR 1L NS BOLUS. JAYMIE, PATIENT'S DAUGHTER NOTIFIED AND IS ON THE WAY. DR RANGEL AT BEDSIDE AT THIS TIME. ORDER RECIEVED TO START VASO. WAITING FOR PHARMACY.
[2021-05-16 11:27] LABS: BE -1.1 mmol/L (-2 to +3)
[2021-05-16 11:29] LABS: PCO2 70.3 mmHg (35.0-45.0); PO2 54.7 mmHg (75.0-100.0); pH 7.207 (7.340-7.450)
--- NOTE | 2021-05-16 12:22 | 2DMMODE ---
[address] [address] 2 D/M-MODE ECHOCARDIOGRAM Name: MARC MASSEY Room: [address] ADM IN M.R.#: [id number] Admission: 04/02/21 Attend Phys: Anthony Whitfield Discharge: Date of : 48 Date of Service: 05/16/21 1222 Report #: [id number] THIS REPORT FOR: cc: Ximena Wills Dorothy L. RNP Blick, David R. MD [facility] ~ ADDENDUM APPROVED REPORT Study performed: 05/16/2021 11:25:06 EXAM: Limited 2D Echocardiogram and doppler BSA: 1.87 Rhythm: NSR Other Information Study Quality: Adequate Indications Septic Shock Left Ventricle The left ventricle is normal size. There is normal LV segmental wall motion. There is normal left ventricular wall thickness. The left ventricular systolic function is normal. The left ventricular ejection fraction is within the normal range. LVEF is >70%. Right Ventricle Right ventricle is dilated. Atria The left atrium size is normal. Right atrium is dilated. Aortic Valve Aortic valve is not well visualized. Mitral Valve The mitral valve is normal in structure. Trace mitral regurgitation. Tricuspid Valve The tricuspid valve is normal in structure. Mild tricuspid regurgitation. estimated pa pressure 65 mm Hg [facility] [address] [place] [address] 2 D/M-MODE ECHOCARDIOGRAM Name: MARC MASSEY Room: [address] [facility] IN M.R.#: [id number] Admission: 04/02/21 Attend Phys: Anthony Whitfield Discharge: Date of : 48 Date of Service: 05/16/21 1222 Report #: [id number] Pulmonic Valve Pulmonic valve is not well visualized. Great Vessels The aortic root is normal in size. IVC is not well visualized. Pericardium There is no pericardial effusion. <Conclusion> The left ventricular systolic function is normal. The left ventricular ejection fraction is within the normal range. Right ventricle is dilated. Right atrium is dilated. Mild tricuspid regurgitation. estimated pa pressure 65 mm Hg <ELECTRONICALLY SIGNED> By: Mauricio Bai MD, FACC 05/16/211221 21 21 Mauricio Bai MD, FACC /INF
--- NOTE | 2021-05-16 17:00 | NUR ---
family came in and decided to go comfort care. vent off at 1457, patient made comfortable. patient at 1517 with loved ones at bedside. please see flowsheet for additional information.
== END 2021-05-16 15:17 | DRG 4 ==
LOC: M.ERS 04:53 → M.TBA-ER 06:04 → M.ICU 06:04 → M.ORTHSURG 06:04 → M.ICU 04-08 17:39
PROVIDERS: Emergency Medicine; Internal Medicine; Internal Medicine Critical Care Medicine; Internal Medicine Gastroenterology; Nurse Practitioner Adult Health; Pediatrics; Student in an Organized Health Care Education/Training Program; Surgery; ADMIT Internal Medicine; ATTEND Internal Medicine
PROC: XW033E5 Introduction of Remdesivir Anti-infective into Peripheral Vein, Percutaneous Approach, New Technology Group 5 (ICD-10-PCS; principal; 2021-04-02)
PROC: 5A0935A Assistance with Respiratory Ventilation, Less than 24 Consecutive Hours, High Flow/Velocity Cannula (ICD-10-PCS; principal; 2021-04-02)
PROC: 5A09357 Assistance with Respiratory Ventilation, Less than 24 Consecutive Hours, Continuous Positive Airway Pressure (ICD-10-PCS; 2021-04-03)
PROC: 5A0935A Assistance with Respiratory Ventilation, Less than 24 Consecutive Hours, High Flow/Velocity Cannula (ICD-10-PCS; 2021-04-03)
PROC: 5A09357 Assistance with Respiratory Ventilation, Less than 24 Consecutive Hours, Continuous Positive Airway Pressure (ICD-10-PCS; 2021-04-04)
PROC: 5A0935A Assistance with Respiratory Ventilation, Less than 24 Consecutive Hours, High Flow/Velocity Cannula (ICD-10-PCS; 2021-04-04)
PROC: 5A09357 Assistance with Respiratory Ventilation, Less than 24 Consecutive Hours, Continuous Positive Airway Pressure (ICD-10-PCS; 2021-04-05)
PROC: 5A0935A Assistance with Respiratory Ventilation, Less than 24 Consecutive Hours, High Flow/Velocity Cannula (ICD-10-PCS; 2021-04-05)
PROC: 5A09357 Assistance with Respiratory Ventilation, Less than 24 Consecutive Hours, Continuous Positive Airway Pressure (ICD-10-PCS; 2021-04-06)
PROC: 5A09357 Assistance with Respiratory Ventilation, Less than 24 Consecutive Hours, Continuous Positive Airway Pressure (ICD-10-PCS; 2021-04-08)
PROC: 5A0935A Assistance with Respiratory Ventilation, Less than 24 Consecutive Hours, High Flow/Velocity Cannula (ICD-10-PCS; 2021-04-08)
PROC: 5A09357 Assistance with Respiratory Ventilation, Less than 24 Consecutive Hours, Continuous Positive Airway Pressure (ICD-10-PCS; 2021-04-09)
PROC: 5A0935A Assistance with Respiratory Ventilation, Less than 24 Consecutive Hours, High Flow/Velocity Cannula (ICD-10-PCS; 2021-04-09)
PROC: 02HV33Z Insertion of Infusion Device into Superior Vena Cava, Percutaneous Approach (ICD-10-PCS; 2021-04-10)
PROC: 03HY32Z Insertion of Monitoring Device into Upper Artery, Percutaneous Approach (ICD-10-PCS; 2021-04-10)
PROC: 0BH17EZ Insertion of Endotracheal Airway into Trachea, Via Natural or Artificial Opening (ICD-10-PCS; 2021-04-10)
PROC: 5A1955Z Respiratory Ventilation, Greater than 96 Consecutive Hours (ICD-10-PCS; 2021-04-10)
PROC: 02HV33Z Insertion of Infusion Device into Superior Vena Cava, Percutaneous Approach (ICD-10-PCS; 2021-04-14)
PROC: 0D568ZZ Destruction of Stomach, Via Natural or Artificial Opening Endoscopic (ICD-10-PCS; 2021-04-15)
PROC: 3E0G8GC Introduction of Other Therapeutic Substance into Upper GI, Via Natural or Artificial Opening Endoscopic (ICD-10-PCS; 2021-04-15)
PROC: 0W9930Z Drainage of Right Pleural Cavity with Drainage Device, Percutaneous Approach (ICD-10-PCS; 2021-04-17)
PROC: 30233N1 Transfusion of Nonautologous Red Blood Cells into Peripheral Vein, Percutaneous Approach (ICD-10-PCS; 2021-04-19)
PROC: 0DH64UZ Insertion of Feeding Device into Stomach, Percutaneous Endoscopic Approach (ICD-10-PCS; 2021-05-06)
PROC: 0B110F4 Bypass Trachea to Cutaneous with Tracheostomy Device, Open Approach (ICD-10-PCS; 2021-05-06)
PROC: 02HV33Z Insertion of Infusion Device into Superior Vena Cava, Percutaneous Approach (ICD-10-PCS; 2021-05-09)
PROC: B5181ZA Fluoroscopy of Superior Vena Cava using Low Osmolar Contrast, Guidance (ICD-10-PCS; 2021-05-09)
PROC: B548ZZA Ultrasonography of Superior Vena Cava, Guidance (ICD-10-PCS; 2021-05-09)
DX: A41.81 Sepsis due to Enterococcus (principal); U07.1 COVID-19; J12.82 Pneumonia due to coronavirus disease 2019; J80 Acute respiratory distress syndrome; K21.01 Gastro-esophageal reflux disease with esophagitis, with bleeding; K25.4 Chronic or unspecified gastric ulcer with hemorrhage; E43 Unspecified severe protein-calorie malnutrition; I26.99 Other pulmonary embolism without acute cor pulmonale; I48.19 Other persistent atrial fibrillation; J93.9 Pneumothorax, unspecified; N39.0 Urinary tract infection, site not specified; B49 Unspecified mycosis; K56.7 Ileus, unspecified; Z99.11 Dependence on respirator [ventilator] status; X58.XXXA Exposure to other specified factors, initial encounter; I48.91 Unspecified atrial fibrillation; T70.29XA Other effects of high altitude, initial encounter; D69.6 Thrombocytopenia, unspecified; J98.2 Interstitial emphysema; D64.9 Anemia, unspecified; B96.5 Pseudomonas (aeruginosa) (mallei) (pseudomallei) as the cause of diseases classified elsewhere; I95.9 Hypotension, unspecified; R73.9 Hyperglycemia, unspecified; Z20.822 Contact with and (suspected) exposure to COVID-19; Z66 Do not resuscitate; Z51.5 Encounter for palliative care